=== PATIENT | female | born 1980 | race Caucasian/White ===

== ENCOUNTER 2024-04-14 12:01 | Outpatient (OUT) | payer BC, SELFPAY ==
--- NOTE | 2024-04-14 13:05 | P.CN_ITS ---
Consult Note: HPI Data of Consult Patient: new to practice Consult date: 04/14/24 Requesting Physician: Malinda Malik MD Primary Care Provider: QUENTIN ROJAS Family Provider: QUENTIN ROJAS Consult Narrative Reason for consult: right hip pain, thigh pain Narrative: 43yof who presents for evaluation. worsening right hip pain and right thigh pain for past several months. underwent l5-s1 fusion about a year ago, which helped with left leg radicular symptoms. endorses numbness in right foot. imaging shows multilevel degenerative changes above the fusion. has engaged in a series of provider directed home exericses for >6 weeks, without benefit. uses gabapentin and advil, with some benefit. denies adverse med side effects. cc:: CC: Malinda Malik MD Review of Systems ROS Status of ROS 10 or more systems reviewed and unremark able except as noted in history and below Exam Narrative Exam Narrative: Psych-alert and oriented x 3.? Attentive and appropriate, constitutionally normal, displays normal mood and affect per situation.? There are no obvious deficits in memory, reasoning, or intellect.? Skin-no obvious rashes, bruising, erythema noted to the patient's area of pain. Extremities- extremities are warm with minimal edema and palpable pulses. Hip-tenderness to palpation is noted over the right hip joint.? Pain is elicited with internal and external rotation of the hip.? Hip provocative maneuvers are positive and consistent with the patient's normal pain.? Coordination remains intact.? Gait remains antalgic. Assessment and Plan Assessment and Plan (1) Trochanteric bursitis of right hip: (2) Lumbar radiculopathy: Plan 43yof who presents for evaluation. failed conservative measures, as noted. imaging reviewed, as noted. given symptoms and imaging, prudent to attempt right troch bursa injection. she is in agreement. discussed that depending on results, may require further imaging with lumbar mri, but will discuss at next visit. meds reviewed, no changes. follow up in 4 weeks. Procedure: Right greater troch bursa injection Medications: Bupivacaine 0.25% 4cc, kenalog 40mg I explained the details of the procedure to the patient including the risks, benefits and alternatives. We had an informed discussion and the patient verbalized understanding and signed the consent form. All questions were answered appropriately.? A time out was performed.? The skin overlying the right lateral hip was prepped with alcohol x3. A sterile syringe containing the above medication was attached to a 25 gauge, 3.5 inch needle under strict aseptic technique. The greater trochanter and point of tenderness was palpated. At this point, the needle was then advanced through the subcutaneous tissue down to os. The needle was withdrawn slightly and the contents of the syringe were gently injected without any resistance. The needle was removed and pressure was applied to the injection site to decrease the incidence of ecchymosis and hematoma formation.? A sterile bandage was applied.
== END 2024-04-14 12:02 | disposition home or self-care (01) ==
PROVIDERS: PCP Family Medicine; Visit Provider Anesthesiology
DX: M70.61 Trochanteric bursitis, right hip (principal); M54.16 Radiculopathy, lumbar region
CPT/HCPCS: 20610; J0665; J3301

== ENCOUNTER 2024-05-12 13:36 | Outpatient (OUT) | payer BC, SELFPAY ==
--- NOTE | 2024-05-12 15:01 | P.CN_ITS ---
Consult Note: HPI Data of Consult Patient: known to practice within the last 3 years Consult date: 05/12/24 Requesting Physician: Malinda Malik MD Primary Care Provider: QUENTIN ROJAS Family Provider: QUENTIN ROJAS Consult Narrative Reason for consult: right thigh pain, bilateral foot pain Narrative: 43yof who presents for assessment. notes pain in her right thigh, as well as bilateral feet. her lumbar imaging was reviewed, which shows facet arthropathy at l3-4, l4-5, above her fusion at l5-s1. continues in a series of provider directed home exercises >6 weeks, without benefit. uses gabapentin. denies adverse med side effects. cc:: CC: Malinda Malik MD Review of Systems ROS Status of ROS 10 or more systems reviewed and unremark able except as noted in history and below Meds Home Medications and Allergies Home Medications ?Medication ?Instructions ?Recorded ?Confirmed ?Type etonogestrel 68 mg subdermal subdermal 04/14/24 History implant (Nexplanon) gabapentin 300 mg capsule 300 mg PO BID 04/14/24 04/14/24 History vortioxetine 5 mg tablet 5 mg PO DAILY 04/14/24 04/14/24 History (Trintellix) Allergies Allergy/AdvReac Type Severity Reaction Status Date / Time Penicillins Allergy itching Verified 04/14/24 13:59 Sulfa (Sulfonamide Allergy itching Verified 04/14/24 13:59 Antibiotics) sulfamethoxazole Allergy itch Verified 04/14/24 13:59 [From Bactrim] trimethoprim [From Bactrim] Allergy itch Verified 04/14/24 13:59 Exam Narrative Exam Narrative: Psych-alert and oriented x 3. Attentive and appropriate, constitutionally normal, displays normal mood and affect per situation. There are no obvious deficits in memory, reasoning, or intellect.? Skin-no obvious rashes, bruising, erythema noted to the patient's area of pain.? Extremities- extremities are warm with minimal edema and palpable pulses. Lumbar-tenderness to palpation noted in the lumbar spine and paraspinal musculature. Pain is not elicited with flexion, extension, and lateral rotation of the lumbar spine. Range of motion is not diminished with these motions. Facet loading maneuvers are negative.? Strength-noted to be unremarkable Sensory-no notable sensory deficits in the bilateral lower extremities to touch or pinprick in all dermatomal distributions with the exception to decreased sensation to the bilateral L4, 5 dermatomal distribution Coordination remains intact.? Gait remains non-antalgic. Assessment and Plan Assessment and Plan (1) Lumbar radiculopathy: Plan 43yof who presents for assessment. worsening right thigh, bilateral foot pain. discussed that would be prudent to obtain EMG of bilateral lower extremities. depending on results, may need lumbar mri. she expressed understanding. meds reviewed, no changes. follow up after EMG.
== END 2024-05-12 13:37 | disposition home or self-care (01) ==
LOC: PM 13:36
PROVIDERS: PCP Family Medicine; Visit Provider Anesthesiology
DX: M54.16 Radiculopathy, lumbar region (principal)
CPT/HCPCS: G0463

== ENCOUNTER 2024-06-09 13:23 | Outpatient (OUT) | payer BC, SELFPAY ==
--- OUTSIDE RECORDS SUMMARY | 2024-06-09 13:45 | XMS_ITS | CCD ---
Author Organization [facility] Care Team Providers Care Press Set Up Name Role Phone Unavailable Primary Care Provider UnavailMEG Anderson Referring Unavailable Quentin Rojas Unavailable QUENTIN ROJAS Primary Care Physician Len, DO Webb Primary Care Provider [phone] DO Quentin Rojas Attending Provider [phone] Janel Waite Unavailable DO Quentin Rojas Primary Care Provider Len, DO Webb Attending Provider [phone] XENIA Waite Attending Provider Chhaya Gautam Unavailable DO Quentin Rojas Primary Care Provider [phone] DO Quentin Rojas Attending Provider MD Chhaya Gautam Attending Provider DO Quentin Rojas Primary Care Provider [phone] XENIA Waite Attending Provider DO Quentin Rojas Primary Care Provider [phone] DO Quentin Rojas Attending Provider DO Quentin Rojas Primary Care Provider MD Chhaya Gautam Attending Provider Len, DO Webb Primary Care Provider MD Chhaya Gautam Attending Provider DO Quentin Rojas Primary Care Provider MD Chhaya Gautam Attending Provider Nely Kat J Attending Unavailable Nely, Kat J Referring Unavailable Nely, Kat J Admitting Unavailable Nely, Kat J Admitting Unavailable Nely, Kat J Attending Unavailable Kuns, DO Quentin Primary Care Provider [phone] DO Len Quentin Attending Provider [phone] MD Chhaya Gautam Attending Provider Kuns, Quentin Attending Unavailable Kuns, Quentin Admitting Unavailable Kuns, Quetnin Primary Care Unavailable Gautam, Chhaya E Admitting Unavailable Kuns, Quentin Primary Care Unavailable Gautam, Chhaya E Attending Unavailable Kuns, Quentin Attending Unavailable Kuns, Quentin Admitting Unavailable Kuns, Quentin Primary Care Unavailable Kuns, Quentin Primary Care Unavailable Gautam, Chhaya E Admitting Unavailable Gautam, Chhaya E Attending Unavailable Gautam, Chhaya E Admitting Unavailable Kuns, Quentin Primary Care Unavailable Gautam, Chhaya E Attending Unavailable Gautam, Chhaya E Admitting Unavailable Gautam, Chhaya E Attending Unavailable Kuns, Quentin Primary Care Unavailable Kuns, Quentin Attending Unavailable Kuns, Quentin Admitting Unavailable Kuns, Quentin Primary Care Unavailable Gautam, Chhaya E Admitting Unavailable Kuns, Quentin Primary Care Unavailable Gatuam, Chhaya E Attending Unavailable Gautam, Chhaya E Admitting Unavailable Gautam, Chhaya E Attending Unavailable Kuns, Quentin Primary Care Unavailable Kuns, DO Quentin Primary Care Provider DO Len Quentin Attending Provider Giedraitis , Malinda Canales Attending Unavailable Giedraitis , Malinda Canales Attending Unavailable LAMIN WARD Attending Unavailable GAUTAM, CHHAYA Referring Unavailable LAMIN WARD Attending Unavailable GAUTAM, CHHAYA Referring Unavailable JAYY RICHARDS Attending Unavailable GAUTAM, CHHAYA Referring Unavailable ROSSY AJ Attending Unavailable GIEDRAITIS, ANDRIUS Referring Unavailable Allergies Allergy Classification Reported Allergen(s) Allergy Type Date of Onset Reaction(s) Facility (20 sources) Clindamycin Drug Allergy 04-16-20 [facility] (16 sources) Sulfamethoxazole / Trimethoprim Drug Allergy rash [facility] Other (16 sources) Sulfonamides (Antibiotic) Propensity to adverse reactions Rash [employer] [facility] Other (10 sources) Penicillin Drug Allergy Unknown [employer] [facility] Other (14 sources) Penicillins; Translations: [Penicillins] Allergy to substance 04-16-20 [facility] (14 sources) Sulfamethoxazole; Translations: [sulfamethoxazole] Drug Allergy 04-16-20 [facility] (14 sources) Sulfonamides (Antibiotic); Translations: [Sulfa (Sulfonamide Antibiotics)] Allergy to substance 04-16-20 [facility] (7 sources) Trimethoprim; Translations: [trimethoprim] Drug Allergy 04-16-20 [facility] (1 source) Clindamycin Drug Allergy 03-20-20 [facility] Repository Medications Current Medications Medication Drug Class(es) Dates Sig (Normalized) Sig (Original) acetaminophen 500 mg oral capsule (9 sources) Start: 12-28-2022 take 1 capsule by mouth every six hours Acetaminophen 500 MG 1 capsule as needed Orally every 6 hrs Dec, Active buPROPion hydrochloride 100 mg oral tablet (2 sources) Aminoketone Start: 06-27-2018 take 1 tablet by mouth every twenty-four hours buPROPion HCl 100 MG 1 tablet Orally Once a day Jun, Active etonogestrel 68 mg drug implant (16 sources) Progestin Nexplanon 68 MG as directed Subcutaneous Active Etonogestrel (Nexplanon) 68 mg Implant (13 sources) Start: 04-16-2023 Etonogestrel (Nexplanon) 68 mg Implant Active 1 IMPLANT SUBDERMAL Once April 15, 2023 11:00pm as a single dose Start: 04-16-2023 Etonogestrel ( Nexplanon) 68 mg Implant Active 1 IMPLANT SUBDERMAL Once April 16, 2023 12:00am as a single dose gabapentin 300 mg oral capsule (18 sources) Anti-epileptic Agent Start: 11-27-2023 End: 01-10-2024 take 300 mg by mouth twice daily Gabapentin Active 300 MG PO Twice daily 180 January 10, 2024 1:15pm Start: 05-15-2023 take 1 capsule by mo uth every twelve hours Gabapentin 300 MG 1 capsules Orally BID for 30 days May, Active Start: 05-15-2023 take 2 capsules by m outh every twelve hours Gabapentin 300 MG 2 capsules Orally BID for 30 days May, Active Start: 05-15-2023 take 1-2 capsules by mouth once daily at bedtime Gabapentin 300 MG 1-2 capsule Orally qhs for 30 days May, Active ibuprofen 200 mg oral tablet (16 sources) Nonsteroidal Anti-inflammatory Drug Start: 04-16-2023 take 200 mg by mouth every six hours Ibuprofen Active 200 MG PO Q6H April 16, 2023 12:00am take 1 tablet by mouth every fou r hours Ibuprofen 200 MG 1 tablet as needed Orally every 4 hrs Active Multivitamin preparation (13 sources) Start: 04-16-2023 take 1 tablet by mouth once daily in the morning Multivitamin Active 1 TAB PO Every morning April 15, 2023 11:00pm Start: 04-16-2023 take 1 tablet by syed th once daily in the morning Multivitamin Active 1 TAB PO Every morning April 16, 2023 12:00am Multivitamins (16 sources) Multivitamins as directed Orally Active naproxen sodium 220 mg oral tablet (9 sources) Nonsteroidal Anti-inflammatory Drug Start: 12-28-2022 take 2 tablets by mouth every twelve hours Aleve 220 MG 2 tablets Orally every 12 hrs Dec, Active semaglutide (1 source) Start: 04-28-2024 inject 0.3 mg by subcutaneous injection every week semaglutide Active 0.3 MG SUBCUT every week April 28, 2024 12:00am [facility] vortioxetine 5 mg oral tablet (12 sources) Start: 12-06-2023 End: 01-10-2024 take 1 tablet by mouth once daily Vortioxetine (Trintellix) 5 mg tablet Active 5 MG PO Daily 90 January 10, 2024 1:16pm Completed/Discontinued Medications Medication Drug Class(es) Dates Sig (Normalized) Sig (Original) ciprofloxacin 500 mg oral tablet (12 sources) Quinolone Antimicrobial Start: 3 End: take 1 tablet by mouth every two hours Ciprofloxacin Hcl (Cipro) 500 mg tablet Discontinued 500 MG PO Q12H May 02, 2023 12:00am November 27, 2023 11:46am administer dose at least 2 hrs before/6 hrs after dairy products, calcium, zinc, and/or iron-containing products citalopram 10 mg oral tablet (20 sources) Serotonin Reuptake Inhibitor Start: 7 End: 4 take 1 tablet by mouth once daily in the morning Citalopram (Celexa) 10 mg tablet Discontinued 10 MG PO Every morning April 16, 2023 12:00am November 27, 2023 11:45am cyclobenzaprine hydrochloride 10 mg oral tablet (12 sources) Muscle Relaxant Start: 3 End: 4 take 10 mg by mouth three times daily Cyclobenzaprine Discontinued 10 MG PO Three times daily May 02, 2023 12:00am March 20, 2024 3:04pm methylPREDNISolone 4 mg oral tablet (14 sources) Corticosteroid Start: 4 End: 4 take 1 tablet by mouth once Methylprednisolone (Medrol (Bryson)) 4 mg tablets,dose pack Discontinued 0 PO per package directions December 06, 2023 1:00am January 10, 2024 12:47pm PO PER PKG DIR Start: 12-07-2022 Medrol 4 MG as directed Orally Nov, Active oxyCODONE hydrochloride 5 mg oral tablet (12 sources) Opioid Agonist Start: 05-02-2023 End: 11-27-2023 take 5-10 mg by mouth every six hours Oxycodone Discontinued 5 - 10 MG PO Q6H 40 8 May 02, 2023 November 27, 2023 11:46am Prednisone (12 sources) Start: 05-02-2023 End: 11-27-2023 Prednisone Discontinued 1 dose pk PO per package directions May 02, 2023 12:00am November 27, 2023 11:46am take 4 tabs for 3 days then take 3 tabs for 3 days then take 2 tabs for 3 days then take 1 tab for 3 days Start: 05-02-2023 End: 11-27-2023 Prednisone Discontinued 1 do se pk PO per package directions May 01, 2023 11:00pm November 27, 2023 10:46am take 4 tabs for 3 days then take 3 tabs for 3 days then take 2 tabs for 3 days then take 1 tab for 3 days Start: 05-02-2023 Prednisone Act sherri 1 dose pk PO per package directions May 01, 2023 11:00pm take 4 tabs for 3 days then take 3 tabs for 3 days then take 2 tabs for 3 days then take 1 tab for 3 days Start: 05-02-2023 Prednisone Act sherri 1 dose pk PO per package directions May 02, 2023 12:00am take 4 tabs for 3 days then take 3 tabs for 3 days then take 2 tabs for 3 days then take 1 tab for 3 days TB Test (15 sources) Start: 04-29-2013 TB Test Apr 0.1 mL Problems Active Problems Problem Classification Problem Date Documented Date Episodic/Chronic Acquired foot deformities (1 source) Foot drop, right foot Episodic Anxiety disorders (10 sources) Anxiety; Translations: [Anxiety disorder, unspecified] 11-27-2023 Chronic Diabetes mellitus without complication (20 sources) Hyperglycemia; Translations: [Hyperglycemia, unspecified] 11-27-2023 Episodic Disorders of lipid metabolism (20 sources) Hyperlipidemia; Translations: [Hyperlipidemia, unspecified] Chronic Menstrual disorders (20 sources) Disorder of menstruation; Translations: [Irregular menstruation, unspecified] 11-27-2023 Chronic Mood disorders (19 sources) Mood swings; Translations: [Unspecified mood [affective] disorder] Onset: 10-04-2021 Resolved: 04-11-2022 Chronic Mood disorders (7 sources) Mood swings; Translations: [Emotional lability] 11-27-2023 Episodic Other acquired deformities (20 sources) Spondylolisthesis L5/S1 level; Translations: [Spondylolisthesis, lumbosacral region] 11-27-2023 Episodic Other acquired deformities (14 sources) Spondylolisthesis, lumbosacral region; Translations: [Spondylolisthesis] Onset: 06-12-2023 Episodic Other acquired deformities (16 sources) Lumbar spondylolisthesis; Translations: [Spondylolisthesis, lumbar region] 05-01-2023 Episodic Other connective tissue disease (1 source) Trochanteric bursitis; Translations: [Trochanteric bursitis, right hip] 03-20-2024 Episodic Other connective tissue disease (1 source) History of lumbar fusion; Translations: [Arthrodesis status] 04-28-2024 Episodic Other connective tissue disease (1 source) Trochanteric bursitis, right hip; Translations: [Enthesopathy of hip region] 03-20-2024 Episodic Other nervous system disorders (20 sources) Carpal tunnel syndrome; Translations: [Carpal tunnel syndrome, unspecified upper limb] 11-27-2023 Chronic Other nervous system disorders (1 source) Fasciculation; Translations: [Fasciculation] Onset: 03-17-2024 Episodic Other non-traumatic joint disorders (1 source) Hip pain; Translations: [Pain in right hip] 04-28-2024 Episodic Other non-traumatic joint disorders (1 source) Pain in right hip; Translations: [Pain in joint, pelvic region and thigh] 04-28-2024 Episodic Other nutritional; endocrine; and metabolic disorders (19 sources) Body mass index 30+ - obesity; Translations: [Body mass index (BMI) 30.0-30.9, adult] 04-28-2024 Chronic Other nutritional; endocrine; and metabolic disorders (1 source) Body mass index (BMI) 30.0-30.9, adult Chronic Other nutritional; endocrine; and metabolic disorders (1 source) Obesity; Translations: [Obesity, unspecified] 04-28-2024 Chronic Other nutritional; endocrine; and metabolic disorders (1 source) Body mass index (BMI) 32.0-32.9, adult; Translations: [Body Mass Index 32.0-32.9, adult] 04-28-2024 Chronic Other nutritional; endocrine; and metabolic disorders (1 source) Obesity, unspecified; Translations: [Obesity, unspecified] 04-28-2024 Chronic Other screening for suspected conditions (not mental disorders or infectious disease) (5 sources) Encounter for screening for malignant neoplasm of colon; Translations: [Special screening for malignant neoplasms of colon] 01-10-2024 Episodic Other skin disorders (1 source) Localized swelling, mass and lump, unspecified upper limb Episodic Screening and history of mental health and substance abuse codes (7 sources) Patient encounter status; Translations: [Encounter for screening for depression] Episodic Spondylosis; intervertebral disc disorders; other back problems (20 sources) Low back pain; Translations: [Low back pain] Onset: 06-03-2024 Episodic Substance-related disorders (20 sources) Nicotine dependence; Translations: [Nicotine dependence, unspecified, uncomplicated] 11-27-2023 Chronic Unclassified (1 source) Encounter for general adult medical examination without abnormal findings; Translations: [Encounter for general adult medical examination without abnormal findings] Onset: 07-02-2023 Unclassified (1 source) Encounter for preprocedural laboratory examination; Translations: [Encounter for preprocedural laboratory examination] Onset: 04-16-2023 Viral infection (16 sources) Condyloma acuminatum of the anogenital region; Translations: [Anogenital (venereal) warts] Episodic Past or Other Problems Problem Classification Problem Date Documented Da te Episodic/Chronic Other acquired deformities (6 sources) Spondylolisthesis, lumbar region; Translations: [Acquired spondylolisthesis] Onset: 04-30-2023 Episodic Other nervous system disorders (1 source) Anesthesia of skin Onset: 04-11-2022 Resolved: 04-11-2022 Episodic Results Test Name Value Interpretation Reference Range Facility Alanine aminotransferase [En zymatic activity/volume] in Serum or PlasmaOrdered By: Quentin Rojas on 03-17-2024 ALT [Catalytic activity/Vol] 16 U/L 7-52 [facility] Comment on above: Performed By: #### C MP, MG, LIPID, TSH3, CBC #### [facility] [address] [place] [address] Albumin [Mass/volume] in Ser um or Plasma by Bromocresol green (BCG) dye binding methoOrdered By: Quentin Rojas on 03-17-2024 Albumin BCG dye [Mass/Vol] 4.0 g/dL 3.5-5.7 [facility] Alkaline phosphatase [Enzyma tic activity/volume] in Serum or PlasmaOrdered By: Quentin Rojas on 03-17-2024 ALP [Catalytic activity/Vol] 62 U/L 34-104 [facility] Comment on above: Performed By: #### C MP, MG, LIPID, TSH3, CBC #### [facility] [address] [place] [address] Aspartate aminotransferase [ Enzymatic activity/volume] in Serum or PlasmaOrdered By: Quentin Rojas on 03-17-2024 AST [Catalytic activity/Vol] 18 U/L 13-39 [facility] Comment on above: Performed By: #### C MP, MG, LIPID, TSH3, CBC #### [address] Automated basophil %Ordered By: Quentin Rojas on 03-17-2024 Basophils/100 WBC (Bld) 0.5 % . [facility] Comment on above: Performed By: #### C MP, MG, LIPID, TSH3, CBC #### [address] Automated basophil countOrde red By: Quentin Rojas on 03-17-2024 Basophils (Bld) [#/Vol] 0.0 10*3/uL 0.0-0.2 [facility] Comment on above: Result Comment: PERF ORMED BY: [place] [address] PATHOLOGIST [employer] DESI FIELDS M.D. Performed By: #### C MP, MG, LIPID, TSH3, CBC #### [address] Automated blood monocyte cou ntOrdered By: Quentin Rojas on 03-17-2024 Monocytes (Bld) [#/Vol] 0.4 10*3/uL 0.0-0.8 [facility] Comment on above: Performed By: #### C MP, MG, LIPID, TSH3, CBC #### [address] Automated eosinophil %Ordere d By: Quentin Rojas on 03-17-2024 Eosinophils/100 WBC (Bld) 1.9 % . [facility] Comment on above: Performed By: #### C MP, MG, LIPID, TSH3, CBC #### [address] Automated eosinophil countOr dered By: Quentin Rojas on 03-17-2024 Eosinophils (Bld) [#/Vol] 0.2 10*3/uL 0.0-0.45 [facility] Comment on above: Performed By: #### C MP, MG, LIPID, TSH3, CBC #### [facility] [address] Automated monocyte %Ordered By: Quentin Rojas on 03-17-2024 Monocytes/100 WBC (Bld) 4.7 % . [facility] Comment on above: Performed By: #### C MP, MG, LIPID, TSH3, CBC #### [facility] [address] Automated neutrophil %Ordere d By: Quentin Rojas on 03-17-2024 Neutrophils/100 WBC (Bld) 56.6 % . [facility] Comment on above: Performed By: #### C MP, MG, LIPID, TSH3, CBC #### [address] Bilirubin.total [Mass/volume ] in Serum or PlasmaOrdered By: Quentin Rojas on 03-17-2024 Bilirubin [Mass/Vol] 0.4 mg/dL 0.3-1.0 [facility] Comment on above: Performed By: #### C MP, MG, LIPID, TSH3, CBC #### [address] Calcium [Mass/volume] in Ser um or PlasmaOrdered By: Quentin Rojas on 03-17-2024 Calcium [Mass/Vol] 9.0 mg/dL 8.6-10.3 [facility] Comment on above: Performed By: #### C MP, MG, LIPID, TSH3, CBC #### [facility] [address] [place] [address] [place] Carbon dioxide, total [Moles /volume] in Serum or PlasmaOrdered By: Quentin Rojas on 03-17-2024 CO2 [Moles/Vol] 21.9 mmol/L 21.0-31.0 [facility] Comment on above: Performed By: #### C MP, MG, LIPID, TSH3, CBC #### [facility] [address] [place] [address] [place] Chloride [Moles/volume] in S sonny or PlasmaOrdered By: Quentin Rojas on 03-17-2024 Chloride [Moles/Vol] 109 mmol/L High 98-107 [facility] Comment on above: Performed By: #### C MP, MG, LIPID, TSH3, CBC #### [address] Cholesterol [Mass/volume] in Serum or PlasmaOrdered By: Quentin Rojas on 03-17-2024 Cholesterol [Mass/Vol] 186 mg/dL 140-200 [facility] Comment on above: Chol less than 200 m g/dl low riskChol 201-239 mg/dl borderline riskChol 240 mg/dl and greater high risk Result Comment: Chol less than 200 mg/dl low risk Chol 201-239 mg/dl borderline risk Chol 240 mg/dl and greater high risk Performed By: #### C BC, BMP #### [address] Cholesterol in LDL Calc [Mas s/Vol]Ordered By: Quentin Rojas on 03-17-2024 Cholesterol in LDL [Mass/Vol] 109 mg/dL High 0-100 [facility] Comment on above: LDL ATP III CLASSIFI CATIONLDL less than 100 mg/dL OptimalLDL 100-129 mg/dL Near or above optimalLDL 130-159 mg/dL Borderline highLDL 160-189 mg/dL HighLDL greater than 189 mg/dL Very high Cholesterol in VLDL Calc [Ma ss/Vol]Ordered By: Quentin Rojas on 03-17-2024 Cholesterol in VLDL [Mass/Vol] 33 mg/dL [facility] Complete Blood Count Auto Di ffon 03-17-2024 Mean Corpuscular HGB Conc 33.9 g/dL Normal 32.0-35.0 [facility] Comment on above: Performed By: #### C MP, MG, LIPID, TSH3, CBC #### [facility] [address] NRBC% 0.1 /100{WBC} Normal 0-0.5 [facility] Comment on above: Performed By: #### C MP, MG, LIPID, TSH3, CBC #### [facility] [address] Comprehensive Metabolic Pane marcello 03-17-2024 Albumin [Mass/Vol] 4.0 g/dL Normal 3.5-5.7 [facility] Comment on above: Performed By: #### C MP, MG, LIPID, TSH3, CBC #### [facility] [address] GFR/1.73 sq M.predicted MDRD (S/P/Bld) [Vol rate/Area] mL/min/{1.73_m2} Normal [facility] Comment on above: Performed By: #### C MP, MG, LIPID, TSH3, CBC #### [address] Creatinine [Mass/volume] in Serum or PlasmaOrdered By: Quentin Rojas on 03-17-2024 Creatinine [Mass/Vol] 0.81 mg/dL 0.60-1.20 [facility] Comment on above: Performed By: #### C MP, MG, LIPID, TSH3, CBC #### [address] Erythrocyte distribution wid th [Ratio] by Automated countOrdered By: Quentin Rojas on 03-17-2024 Erythrocyte distribution width (RBC) [Ratio] 13.5 % 11.9-15.3 [facility] Comment on above: Performed By: #### C MP, MG, LIPID, TSH3, CBC #### [facility] [address] [place] [address] Erythrocytes [#/volume] in B lood by Automated countOrdered By: Quentin Rojas on 03-17-2024 RBC (Bld) [#/Vol] 4.44 10*6/uL 3.60-5.00 [facility] Comment on above: Performed By: #### C MP, MG, LIPID, TSH3, CBC #### [facility] [address] Glucose [Mass/volume] in Ser um or PlasmaOrdered By: Quentin Rojas on 03-17-2024 Glucose [Mass/Vol] 105 mg/dL High 70-100 [facility] Comment on above: ADA recommended refe rence rangeRandom Glucose Reference Range is dependent on time and content of last meal. Glucose of more than 200 mg/dL in a nonstressed, ambulatory subject supports the diagnosis of Diabetes Mellitus. Result Comment: Grass Range om Glucose Reference Range is dependent on time and content of last meal. Glucose of more than 200 mg/dL in a nonstressed, ambulatory subject supports the diagnosis of Diabetes Mellitus. ADA recommended reference range Performed By: #### C MP, MG, LIPID, TSH3, CBC #### [address] Hematocrit [Volume Fraction] of Blood by Automated countOrdered By: Quentin Rojas on 03-17-2024 Hematocrit (Bld) [Volume fraction] 41.9 % 34.0-46.4 [facility] Comment on above: Performed By: #### C MP, MG, LIPID, TSH3, CBC #### [address] Hemoglobin [Mass/volume] in BloodOrdered By: Quentin Rojas on 03-17-2024 Hemoglobin (Bld) [Mass/Vol] 14.2 g/dL 11.8-15.4 [facility] Comment on above: Performed By: #### C MP, MG, LIPID, TSH3, CBC #### [address] Leukocytes [#/volume] correc jeevan for nucleated erythrocytes in Blood by Automated counOrdered By: Quentin Rojas on 03-17-2024 WBC corrected for nucl RBC Auto (Bld) [#/Vol] 8.1 10*3/uL 3.8-11.6 [facility] Leukocytes [#/volume] in Blo od by Automated countOrdered By: Quentin Rojas on 03-17-2024 WBC (Bld) [#/Vol] 8.1 10*3/uL 3.8-11.6 [facility] Comment on above: Performed By: #### C MP, MG, LIPID, TSH3, CBC #### [address] Lipid Panelon 03-17-2024 LDL Cholesterol,Calculated 109 mg/dL High 0-100 [facility] Comment on above: Result Comment: LDL ATP III CLASSIFICATION LDL less than 100 mg/dL Optimal LDL 100-129 mg/dL Near or above optimal LDL 130-159 mg/dL Borderline high LDL 160-189 mg/dL High LDL greater than 189 mg/dL Very high Performed By: #### C BC, BMP #### [address] Triglyceride w/Reflex 166 mg/dL High 0-149 [facility] Comment on above: Result Comment: TRIG ATP III CLASSIFICATION TRIG less than 150 mg/dL Normal TRIG 150-199 mg/dL Borderline high TRIG 200-500 mg/dL High TRIG greater than 500 mg/dL Very high Standard traceable to the Center for Disease Conrtrol and Prevention (CDC) test method. Performed By: #### C BC, BMP #### [address] VLDL CHOLESTEROL 33 mg/dL Normal [facility] Comment on above: Performed By: #### C BC, BMP #### [address] Lymphocytes [#/volume] in Bl ood by Automated countOrdered By: Quentin Rojas on 03-17-2024 Lymphocytes (Bld) [#/Vol] 3.0 10*3/uL 1.00-4.8 [facility] Comment on above: Performed By: #### C MP, MG, LIPID, TSH3, CBC #### [place] [address] [place] Lymphocytes/100 leukocytes i n Blood by Automated countOrdered By: Quentin Rojas on 03-17-2024 Lymphocytes/100 WBC (Bld) 36.3 % . [facility] Comment on above: Performed By: #### C MP, MG, LIPID, TSH3, CBC #### [place] [address] [place] MCH [Entitic mass] by Automa jeevan countOrdered By: Quentin Rojas on 03-17-2024 MCH (RBC) [Entitic mass] 32.0 pg 24.7-34.3 [facility] Comment on above: Performed By: #### C MP, MG, LIPID, TSH3, CBC #### [facility] [address] [place] [address] MCHC Auto (RBC) [Mass/Vol]Or dered By: Quentin Rojas on 03-17-2024 MCHC (RBC) [Mass/Vol] 33.9 g/dL 32.0-35.0 [facility] MCV [Entitic volume] by Auto mated countOrdered By: Quentin Rojas on 03-17-2024 MCV (RBC) [Entitic vol] 94.4 fL 80-100 F [facility] Comment on above: Performed By: #### C MP, MG, LIPID, TSH3, CBC #### [facility] [address] [place] [address] Magnesium [Mass/volume] in S sonny or PlasmaOrdered By: Quentni Rojas on 03-17-2024 Magnesium [Mass/Vol] 1.9 mg/dL 1.9-2.7 [facility] Comment on above: Performed By: #### C MP, MG, LIPID, TSH3, CBC #### [facility] [address] [place] [address] Neutrophils [#/volume] in Bl ood by Automated countOrdered By: Quentin Rojas on 03-17-2024 Neutrophils (Bld) [#/Vol] 4.6 10*3/uL 1.8-7.7 [facility] Comment on above: Performed By: #### C MP, MG, LIPID, TSH3, CBC #### [facility] [address] [place] [address] No Panel InformationOrdered By: Quentin Rojas on 03-17-2024 Estimated GFR (CKD-EPI) > 60.0 mL/Min [facility] Creatinine Clearance (Chem N/A [facility] Nucleated erythrocytes [Pres ence] in Blood by Automated countOrdered By: Quentin Rojas on 03-17-2024 Nucleated RBC Auto Ql (Bld) 0.1 /100{WBC} 0-0.5 [facility] Platelet mean volume [Entiti c volume] in Blood by Automated countOrdered By: Quentin Rojas on 03-17-2024 Platelet mean volume (Bld) [Entitic vol] 7.7 fL 6.3-10.7 [facility] Comment on above: Performed By: #### C MP, MG, LIPID, TSH3, CBC #### [facility] [address] Platelets [#/volume] in Bloo d by Automated countOrdered By: Quentin Rojas on 03-17-2024 Platelets (Bld) [#/Vol] 349 10*3/uL 150-450 [facility] Comment on above: Performed By: #### C MP, MG, LIPID, TSH3, CBC #### [address] Potassium [Moles/volume] in Serum or PlasmaOrdered By: Quentin Rojas on 03-17-2024 Potassium [Moles/Vol] 4.1 mmol/L 3.5-5.1 [facility] Comment on above: Performed By: #### C MP, MG, LIPID, TSH3, CBC #### [address] Protein [Mass/volume] in Ser um or PlasmaOrdered By: Quentin Rojas on 03-17-2024 Protein [Mass/Vol] 6.4 g/dL 6.4-8.9 [facility] Comment on above: Performed By: #### C MP, MG, LIPID, TSH3, CBC #### [address] Serum globulin measurement b y calculation (mass/volume)Ordered By: Quentin Rojas on 03-17-2024 Globulin (S) [Mass/Vol] 2.4 g/dL [facility] Comment on above: Performed By: #### C MP, MG, LIPID, TSH3, CBC #### [address] Serum or plasma albumin/glob ulin mass ratioOrdered By: Quentin Rojas on 03-17-2024 Albumin/Globulin [Mass ratio] 1.7 {ratio} [facility] Comment on above: Performed By: #### C MP, MG, LIPID, TSH3, CBC #### [facility] [address] [place] [address] Serum or plasma anion gap de terminationOrdered By: Quentin Rojas on 03-17-2024 Anion gap [Moles/Vol] 12.2 mmol/L 6.0-15.0 [facility] Comment on above: Performed By: #### C MP, MG, LIPID, TSH3, CBC #### [address] Serum or plasma high density lipoprotein (HDL) cholesterol measurementOrdered By: Quentin Rojas on 03-17-2024 Cholesterol in HDL [Mass/Vol] 44 mg/dL 23-92 [facility] Comment on above: HDL CHOL ATP-III CLA SSIFICATION Cardiovascular RiskHDL > or equal to 60 mg/dL LOWHDL < 40 mg/dL HIGH Result Comment: HDL CHOL ATP-III CLASSIFICATION Cardiovascular Risk HDL > or equal to 60 mg/dL LOW HDL < 40 mg/dL HIGH Performed By: #### C BC, BMP #### [address] Serum or plasma total choles terol/high density lipoprotein (HDL) cholesterol mass ratOrdered By: Quentin Rojas on 03-17-2024 Cholesterol.total/Jeana sterol in HDL [Mass ratio] 4.2 {ratio} <5.0 [facility] Comment on above: Performed By: #### C BC, BMP #### [address] Sodium [Moles/volume] in Ser um or PlasmaOrdered By: Quentin Rojas on 03-17-2024 Sodium [Moles/Vol] 139 mmol/L 136-145 [facility] Comment on above: Performed By: #### C MP, MG, LIPID, TSH3, CBC #### [address] Thyrotropin [Units/volume] i n Serum or PlasmaOrdered By: Quentin Rojas on 03-17-2024 TSH Qn 1.18 m[IU]/L 0.45-5.33 [facility] Comment on above: Result Comment: PERF ORMED BY: [place] [address] PATHOLOGIST SUPERVISOR [employer] DESI FIELDS M.D. Performed By: #### C BC, BMP #### [facility] [address] [place] [address] Triglyceride [Mass/volume] i n Serum or PlasmaOrdered By: Quentin Rojas on 03-17-2024 Triglyceride [Mass/Vol] 166 mg/dL High 0-149 F [facility] Comment on above: TRIG ATP III CLASSIF ICATIONTRIG less than 150 mg/dL NormalTRIG 150-199 mg/dL Borderline highTRIG 200-500 mg/dL High TRIG greater than 500 mg/dL Very highStandard traceable to the Center for Disease Conrtrol and Prevention (CDC) test method. Urea nitrogen [Mass/volume] in Serum or PlasmaOrdered By: Quentin Rojas on 03-17-2024 Urea nitrogen [Mass/Vol] 14 mg/dL 05-08 [facility] Comment on above: Performed By: #### C MP, MG, LIPID, TSH3, CBC #### [address] XR lumbar spine 6V w bending on 03-17-2024 XR lumbar spine 6V w bending [facility] [place] [address] [place] [address] XRay Report Signed Patient: Vanessa Schroeder MR#: [id number] 28 : 1980 Acct:[id number] Age/Sex: 43 / F ADM Date: 03/17/24 [facility] Attending Dr: Chhaya Gautam MD Copies to: Chhaya Gautam MD Ordering Provider: Chhaya Gautam MD Date of Service: 03/17/24 XR/XR lumbar spine 6V w bending: M54.16 - Radiculopathy, lumbar region XR lumbar spine 6V w bending 03/17/2024 8:28 AM SIGNS AND SYMPTOMS: Follow-up lumbar fusion, right hip pain PROTOCOLS: Frontal, lateral, and flexion-extension views of the lumbar spine COMPARISON: 10/10/2023 FINDINGS: The alignment, development and bony structures are normal. There is no fracture or destructive lesion. Posterior and intervertebral fusion is noted at L5-S1 with similar alignment. No hardware complication. There is mild disc height loss at L3-L4 and L4-5 with accompanying anterior osteophyte formation. Facet hypertrophy is present at L3-L4 and L4-5. Flexion and extension views show no pathologic movement. Degenerative changes are noted in the sacroiliac joints. XR/XR lumbar spine 6V w bending IMPRESSION: No fracture. No pathologic movement. Unchanged posterior fusion at L5-S1 without change in alignment. Impression dictated by: Chaz Bruner M.D.03/17/2024 12:08 PM Dictation Location: [place] [address] Transcribed By: [facility] 03/17/24 1208 Dictated By: Chaz Bruner II, MD 03/17/24 1207 Signed By: 03/17/24 1208 Normal [facility] ECG 12 lead ECGon 01-10-2024 ECG 12 lead ECG [facility] [place] [address] [place] [address] Electrocardiograph Report Signed Patient: Vanessa Schroeder MR#: [id number] 28 : 1980 Acct:[id number] Age/Sex: 43 / F ADM Date: 01/10/24 Loc: [facility] Room: Type: [facility] Attending Dr: Quentin Rojas DO Ordering Provider: Quentin Rojas DO Date of Service: 01/10/24 ECG/ECG 12 lead ECG: Z00.00 - Encounter for general adult medical examination ... Copies to: Test Reason : Blood Pressure : / mmHG Vent. Rate : 085 BPM Atrial Rate : 085 BPM P-R Int : 118 ms QRS Dur : 086 ms QT Int : 368 ms P-R-T Axes : 042 050 049 degrees QTc Int : 437 ms Normal sinus rhythm Normal ECG When compared with ECG of 16-APR-2023 11:40, No significant change was found Confirmed by Quentin Rojas ([id number]) on 01/10/2024 1:46:58 PM Referred By: Electronically Signed By:Quentin Rojas Transcribed By: MUS Signed By Quentin Rojas DO 01/10/24 1347 Normal [facility] Laboratory - Chemistry and C hemistry - challengeon 01-10-2024 Bilirubin Ql (U) Negative [facility] Glucose (U) [Mass/Vol] Negative [facility] Ketones Ql ([facility]) Trace [facility] pH (U) 6.0 [pH] [facility] Specific gravity (U) [Rel density] 1.030 [facility] Urobilinogen (U) [Mass/Vol] 0.2 mg/dL [facility] Laboratory - Specimen inform ationon 01-10-2024 Appearance (U) dark [facility] Color (U) yellow [facility] Laboratory - Urinalysison Leukocyte esterase Test strip Ql (U) Negative [facility] Nitrite Ql (U) Negative [facility] Protein Ql (U) Trace [facility] No Panel Informationon 01-09 Urine Occult Blood Negative [facility] MA Mamm Screen w/CAD if perf and 3D Bilon 12-03-2023 MA Mamm Screen w/CAD if perf and 3D Andrea Exam Date/Time: 12/03/2023 11:49 EST Reason for Exam: Z12.31 Report IMPRESSION: BIRADS 1 NEGATIVE, NORMAL INTERVAL FOLLOW-UP.12 MONTH RECALL. CLINICAL HISTORY: Z12.31. COMPARISON: 12/01/2022. COMMENT: Routine views and tomosynthesis views of both breasts were obtained. There are scattered areas of fibroglandular density. No dominant breast mass nor neoplastic calcifications are identified in either breast. There has been no significant change from the previous exam. The examination was reviewed with Computer Aided Detection. Breast Density: No Mammography is very important to your health. The current [employer] and National Comprehensive Cancer Network guidelines recommends annual mammography beginning at age 40. This facility utilizes a reminder system to ensure all patients receive reminder notifications at the appropriate time based on the recommendations of this exam. Board Certified Radiologists. Accredited by the ACR and FDA. Ordering Provider: Kat Mckay FINAL REPORT Dictated: 12/03/2023 11:58 am Amando Flores M.D. Signed (Electronic Signature): 12/03/2023 11:58 am Signed by: Amando Flores M.D. Transcribed by: MARIE Technologist: EVON Assessment: BI-RADS Category 1-Negative Recommendation: Normal interval follow-up Normal [facility] PAP [id number] 11-21-2023 Cytology report Cyto stain Doc (Cvx/Vag) Note Invalid Interpretation Code [facility] Comment on above: Result Comment: TEST S RESULT FLAG UNITS REF RANGE LAB Clinician Provided Cytology Information Source.............Endocervix Other..............Other No. of containers..01 ThinPrep Vial DIAGNOSIS: 01 NEGATIVE FOR INTRAEPITHELIAL LESION OR MALIGNANCY. Specimen adequacy: 01 Satisfactory for evaluation. No endocervical component is identified. Performed by: Danilo Wyatt Lan Engineer (ASCP) . 01 Note: Note 01 The Pap smear is a screening test designed to aid in the detection of premalignant and malignant conditions of the uterine cervix. It is not a diagnostic procedure and should not be used as the sole means of detecting cervical cancer. Both false-positive and false-negative reports do occur. Test Methodology: Note 01 This liquid based ThinPrep(R) pap test was screened with the use of an image guided system. FLAG LEGEND: L-Low Normal,H-High Normal,LL-Alert Low,HH-Alert High <-Panic Low,>-Panic High,A-Abnormal,AA-Critical Abnormal Performed at: [address] [id number] Linh Arnold MD, Performed By: #### 3 [id number] #### [facility] [address] [place] [address] HPV 16+18+31+33+35+39+45+51 +52+56+58+59+66+68 DNA Probe+sig amp Ql (Cvx) Negative Invalid Interpretation Code Negative [facility] Comment on above: Result Comment: This nucleic acid amplification test detects fourteen high-risk HPV types (16,18,31,33,35,39,45,51,52,56,58,59,66,68) without differentiation. Performed at: [facility] [id number] MD Catalina Melton Performed at: =G [facility] [id number] MD Catalina Melton Performed By: #### 3 [id number] #### [facility] [address] [place], [place] [id number] PAP [id number] 11-15-2023 Collection Technique BRUSH-SPATULA Normal [facility] Comment on above: Performed By: #### 3 [id number] #### [facility] [address] [place] [id number] Gynecological Body Site ENDOCERVIX Normal F [facility] Comment on above: Performed By: #### 3 [id number] #### [facility] [address] [place] [id number] Other Patient Information [id number] Normal [facility] Comment on above: Performed By: #### 3 [id number] #### [facility] [address] [place] [address] Previous Cytology Negative Normal [facility] Comment on above: Performed By: #### 3 [id number] #### [facility] [address] [place] [address] Previous Treatment NONE Normal [facility] Comment on above: Performed By: #### 3 [id number] #### [facility] [address] [place] [address] Physician Orderon 11-15-2023 Physician Order [id number] .00TIFF Normal [facility] Physician Order [id number]#1 .00TIFF Normal [facility] XR lumbar spine AP/LAT/FLX/E XTon 10-10-2023 XR lumbar spine AP/LAT/FLX/EXT [facility] [place] [address] XRay Report Signed Patient: Vanessa Schroeder MR#: [id number] 28 : 1980 Acct:[id number] Age/Sex: 43 / F ADM Date: 10/10/23 [facility]: Type: [facility] Attending Dr: Chhaya Gautam MD Copies to: Chhaya Gautam MD Ordering Provider: Chhaya Gautam MD Date of Service: 10/10/23 XR/XR lumbar spine AP/LAT/FLX/EXT: FOLLOW UP LUMBAR SPINE WITH FLEXION AND EXTENSION VIEWS - 4 views COMPARISON: 07/16/2023 CLINICAL DATA: Follow-up after lumbar fusion. Right leg numbness. Standing AP as well as lateral views in neutral, flexion and extension were obtained. There is prior laminectomy and fusion at the lumbosacral junction. Posterior rods, pedicle screws and interbody fusion device are again noted. The hardware is stable. There is still slight anterolisthesis of L5 on S1. There is no other malalignments or instability with flexion or extension. No acute fractures are seen. There is mild disc space narrowing at L3-4 and L4-5. There are tiny endplate spurs. There is mild lower lumbar facet disease. The SI joints show mild sclerosis. No paraspinal soft tissue abnormalities are present. XR/XR lumbar spine AP/LAT/FLX/EXT IMPRESSION: STABLE POSTOPERATIVE CHANGES AT THE LUMBOSACRAL JUNCTION. Impression dictated by: Kathy Alcantara M.D.10/10/2023 3:44 PM Dictation Location: [facility] Transcribed By: BERNADETTE 10/10/23 1544 Dictated By: Kathy Alcantara MD 10/10/23 1540 Signed By: 10/10/23 1544 Normal [facility] XR lumbar spine AP/LAT/FLX/E XTon 07-16-2023 XR lumbar spine AP/LAT/FLX/EXT [facility] [place] [address] [place] [address] XRay Report Signed Patient: Vanessa Schroeder MR#: [id number] 28 : 1980 Acct:[id number] Age/Sex: 43 / F ADM Date: 07/16/23 Loc: [facility] Room: Type: [facility] Attending Dr: Chhaya Gautam MD Copies to: Chhaya Gautam MD Ordering Provider: Chhaya Gautam MD Date of Service: 07/16/23 XR/XR lumbar spine AP/LAT/FLX/EXT: M43.17, LUMBAR SPINE WITH FLEXION AND EXTENSION VIEWS - 4 views COMPARISON: 06/12/2023 CLINICAL DATA: Follow-up lumbar fusion. Standing AP as well as lateral views in neutral, flexion and extension were obtained. There is osteopenia. There is prior laminectomy and fusion with posterior rods and pedicle screws at the lumbosacral junction. The hardware appears intact and similar in position to the prior. There are no developing fractures. There is no change in alignment or evidence of instability. There is slight disc space narrowing L3-4 and L4-5. There are tiny endplate spurs. There is some facet disease. The SI joints are intact. XR/XR lumbar spine AP/LAT/FLX/EXT IMPRESSION: STABLE POSTOPERATIVE AND MINOR DEGENERATIVE CHANGES. Impression dictated by: Kathy Alcantara M.D.07/16/2023 3:01 PM Dictation Location: [place] [address] Transcribed By: BERNADETTE 07/16/23 1501 Dictated By: Kathy Alcantara MD 07/16/23 1456 Signed By: 07/16/23 1501 Normal [facility] Alanine aminotransferase [En zymatic activity/volume] in Serum or PlasmaOrdered By: Quentin Rojas on 07-02-2023 ALT [Catalytic activity/Vol] 18 U/L Normal 7-52 [facility] Comment on above: Order Comment: Reaso n for Exam Wellness examination Performed By: #### C MP, TSH3, CBC, LIPID #### [facility] [address] [place] [address] [place] Albumin [Mass/volume] in Ser um or Plasma by Bromocresol green (BCG) dye binding methoOrdered By: Quentin Rojas on 07-02-2023 Albumin BCG dye [Mass/Vol] 4.2 g/dL 3.5-5.7 [facility] Alkaline phosphatase [Enzyma tic activity/volume] in Serum or PlasmaOrdered By: Quentin Rojas on 07-02-2023 ALP [Catalytic activity/Vol] 73 U/L Normal 34-104 [facility] Comment on above: Order Comment: Reaso n for Exam Wellness examination Performed By: #### C MP, TSH3, CBC, LIPID #### [place] [address] [place] Aspartate aminotransferase [ Enzymatic activity/volume] in Serum or PlasmaOrdered By: Quentin Rojas on 07-02-2023 AST [Catalytic activity/Vol] 20 U/L Normal 13-39 [facility] Comment on above: Order Comment: Reaso n for Exam Wellness examination Performed By: #### C MP, TSH3, CBC, LIPID #### [place] [address] [place] Automated basophil %Ordered By: Quentin Rojas on 07-02-2023 Basophils/100 WBC (Bld) 0.3 % Normal . [facility] Comment on above: Order Comment: Reaso n for Exam Wellness examination Performed By: #### C MP, TSH3, CBC, LIPID #### [place] [address] [place] Automated basophil countOrde red By: Quentin Rojas on 07-02-2023 Basophils (Bld) [#/Vol] 0.0 10*3/uL Normal 0.0-0.2 [facility] Comment on above: Order Comment: Reaso n for Exam Wellness examination Result Comment: PERF ORMED BY: [place] [address] PATHOLOGIST SUPERVISOR [employer] DESI FIELDS M.D. Performed By: #### C MP, TSH3, CBC, LIPID #### [facility] [address] [place] [address] Automated blood monocyte cou ntOrdered By: Quentin Rojas on 07-02-2023 Monocytes (Bld) [#/Vol] 0.4 10*3/uL Normal 0.0-0.8 [facility] Comment on above: Order Comment: Reaso n for Exam Wellness examination Performed By: #### C MP, TSH3, CBC, LIPID #### [address] Automated eosinophil %Ordere d By: Quentin Rojas on 07-02-2023 Eosinophils/100 WBC (Bld) 2.5 % Normal . [facility] Comment on above: Order Comment: Reaso n for Exam Wellness examination Performed By: #### C MP, TSH3, CBC, LIPID #### [facility] [address] [place] [address] Automated eosinophil countOr dered By: Quentin Rojas on 07-02-2023 Eosinophils (Bld) [#/Vol] 0.2 10*3/uL Normal 0.0-0.45 [facility] Comment on above: Order Comment: Reaso n for Exam Wellness examination Performed By: #### C MP, TSH3, CBC, LIPID #### [facility] [address] [place] [address] Automated monocyte %Ordered By: Quentin Rojas on 07-02-2023 Monocytes/100 WBC (Bld) 5.3 % Normal . [facility] Comment on above: Order Comment: Reaso n for Exam Wellness examination Performed By: #### C MP, TSH3, CBC, LIPID #### [facility] [address] [place] [address] [place] Automated neutrophil %Ordere d By: Quentin Rojas on 07-02-2023 Neutrophils/100 WBC (Bld) 60.4 % Normal . [facility] Comment on above: Order Comment: Reaso n for Exam Wellness examination Performed By: #### C MP, TSH3, CBC, LIPID #### [facility] [address] [place] [address] [place] Bilirubin.total [Mass/volume ] in Serum or PlasmaOrdered By: Quentin Rojas on 07-02-2023 Bilirubin [Mass/Vol] 0.3 mg/dL Normal 0.3-1.0 [facility] Comment on above: Order Comment: Reaso n for Exam Wellness examination Performed By: #### C MP, TSH3, CBC, LIPID #### [facility] [address] [place] [address] [place] Calcium [Mass/volume] in Ser um or PlasmaOrdered By: Quentin Rojas on 07-02-2023 Calcium [Mass/Vol] 9.3 mg/dL Normal 8.6-10.3 [facility] Comment on above: Order Comment: Reaso n for Exam Wellness examination Performed By: #### C MP, TSH3, CBC, LIPID #### [facility] [address] [place] [address] [place] Carbon dioxide, total [Moles /volume] in Serum or PlasmaOrdered By: Quentin Rojas on 07-02-2023 CO2 [Moles/Vol] 25.5 mmol/L Normal 21.0-31.0 [facility] Comment on above: Order Comment: Reaso n for Exam Wellness examination Performed By: #### C MP, TSH3, CBC, LIPID #### [facility] [address] [place] [id number] [place] Chloride [Moles/volume] in S sonny or PlasmaOrdered By: Quentin Rojas on 07-02-2023 Chloride [Moles/Vol] 111 mmol/L High 98-107 [facility] Comment on above: Order Comment: Reaso n for Exam Wellness examination Performed By: #### C MP, TSH3, CBC, LIPID #### [facility] [address] [place] [id number] [place] Cholesterol [Mass/volume] in Serum or PlasmaOrdered By: Quentin Rojas on 07-02-2023 Cholesterol [Mass/Vol] 203 mg/dL High 140-200 [facility] Comment on above: Chol less than 200 m g/dl low riskChol 201-239 mg/dl borderline riskChol 240 mg/dl and greater high risk Order Comment: Reaso n for Exam Wellness examination Result Comment: Chol less than 200 mg/dl low risk Chol 201-239 mg/dl borderline risk Chol 240 mg/dl and greater high risk Performed By: #### C MP, TSH3, CBC, LIPID #### [facility] [address] [place] [address] [place] Cholesterol in LDL Calc [Mas s/Vol]Ordered By: Quentin Rojas on 07-02-2023 Cholesterol in LDL [Mass/Vol] 120 mg/dL 0-100 [facility] Comment on above: LDL ATP III CLASSIFI CATIONLDL less than 100 mg/dL OptimalLDL 100-129 mg/dL Near or above optimalLDL 130-159 mg/dL Borderline highLDL 160-189 mg/dL HighLDL greater than 189 mg/dL Very high Cholesterol in VLDL Calc [Ma ss/Vol]Ordered By: Quentin Rojas on 07-02-2023 Cholesterol in VLDL [Mass/Vol] 35 mg/dL [facility] Complete Blood Count Auto Di ffon 07-02-2023 Mean Corpuscular HGB Conc 33.7 g/dL Normal 32.0-35.0 [facility] Comment on above: Order Comment: Reaso n for Exam Wellness examination Performed By: #### C MP, TSH3, CBC, LIPID #### [facility] [address] [place] [address] [facility] NRBC% 0.0 /100{WBC} Normal 0-0.5 [facility] Comment on above: Order Comment: Reaso n for Exam Wellness examination Performed By: #### C MP, TSH3, CBC, LIPID #### [facility] [address] [place] [address] [place] Comprehensive Metabolic Pane marcello 07-02-2023 Albumin [Mass/Vol] 4.2 g/dL Normal 3.5-5.7 [facility] Comment on above: Order Comment: Reaso n for Exam Wellness examination Performed By: #### C MP, TSH3, CBC, LIPID #### [place] [address] [place] GFR/1.73 sq M.predicted MDRD (S/P/Bld) [Vol rate/Area] mL/min/{1.73_m2} Normal [facility] Comment on above: Order Comment: Reaso n for Exam Wellness examination Performed By: #### C MP, TSH3, CBC, LIPID #### [address] Creatinine [Mass/volume] in Serum or PlasmaOrdered By: Quentin Rojas on 07-02-2023 Creatinine [Mass/Vol] 0.92 mg/dL Normal 0.60-1.20 [facility] Comment on above: Order Comment: Reaso n for Exam Wellness examination Performed By: #### C MP, TSH3, CBC, LIPID #### [address] Erythrocyte distribution wid th [Ratio] by Automated countOrdered By: Quentin Rojas on 07-02-2023 Erythrocyte distribution width (RBC) [Ratio] 13.6 % Normal 11.9-15.3 [facility] Comment on above: Order Comment: Reaso n for Exam Wellness examination Performed By: #### C MP, TSH3, CBC, LIPID #### [place] [address] [place] Erythrocytes [#/volume] in B lood by Automated countOrdered By: Quentin Rojas on 07-02-2023 RBC (Bld) [#/Vol] 4.40 10*6/uL Normal 3.60-5.00 [facility] [facility] Comment on above: Order Comment: Reaso n for Exam Wellness examination Performed By: #### C MP, TSH3, CBC, LIPID #### [place] [address] [place] Glucose [Mass/volume] in Ser um or PlasmaOrdered By: Quentin Rojas on 07-02-2023 Glucose [Mass/Vol] 93 mg/dL Normal 70-100 [facility] Comment on above: ADA recommended refe rence rangeRandom Glucose Reference Range is dependent on time and content of last meal. Glucose of more than 200 mg/dL in a nonstressed, ambulatory subject supports the diagnosis of Diabetes Mellitus. Order Comment: Reaso n for Exam Wellness examination Result Comment: Grass Range om Glucose Reference Range is dependent on time and content of last meal. Glucose of more than 200 mg/dL in a nonstressed, ambulatory subject supports the diagnosis of Diabetes Mellitus. ADA recommended reference range Performed By: #### C MP, TSH3, CBC, LIPID #### [facility] [address] [place] [address] Hematocrit [Volume Fraction] of Blood by Automated countOrdered By: Quentin Rojas on 07-02-2023 Hematocrit (Bld) [Volume fraction] 42.6 % Normal 34.0-46.4 [facility] Comment on above: Order Comment: Reaso n for Exam Wellness examination Performed By: #### C MP, TSH3, CBC, LIPID #### [facility] [address] [place] [address] Hemoglobin [Mass/volume] in BloodOrdered By: Quentin Rojas on 07-02-2023 Hemoglobin (Bld) [Mass/Vol] 14.4 g/dL Normal 11.8-15.4 [facility] Comment on above: Order Comment: Reaso n for Exam Wellness examination Performed By: #### C MP, TSH3, CBC, LIPID #### [facility] [address] [place] [address] Leukocytes [#/volume] correc jeevan for nucleated erythrocytes in Blood by Automated counOrdered By: Quentin Rojas on 07-02-2023 WBC corrected for nucl RBC Auto (Bld) [#/Vol] 8.1 10*3/uL 3.8-11.6 [facility] Leukocytes [#/volume] in Blo od by Automated countOrdered By: Quentin Rojas on 07-02-2023 WBC (Bld) [#/Vol] 8.1 10*3/uL Normal 3.8-11.6 [facility] Comment on above: Order Comment: Reaso n for Exam Wellness examination Performed By: #### C MP, TSH3, CBC, LIPID #### [facility] [address] Lipid Panelon 07-02-2023 LDL Cholesterol,Calculated 120 mg/dL High 0-100 [facility] Comment on above: Order Comment: Reaso n for Exam Wellness examination Result Comment: LDL ATP III CLASSIFICATION LDL less than 100 mg/dL Optimal LDL 100-129 mg/dL Near or above optimal LDL 130-159 mg/dL Borderline high LDL 160-189 mg/dL High LDL greater than 189 mg/dL Very high Performed By: #### C MP, TSH3, CBC, LIPID #### [facility] [address] Triglyceride w/Reflex 175 mg/dL High 0-149 [facility] Comment on above: Order Comment: Reaso n for Exam Wellness examination Result Comment: TRIG ATP III CLASSIFICATION TRIG less than 150 mg/dL Normal TRIG 150-199 mg/dL Borderline high TRIG 200-500 mg/dL High TRIG greater than 500 mg/dL Very high Standard traceable to the Center for Disease Conrtrol and Prevention (CDC) test method. Performed By: #### C MP, TSH3, CBC, LIPID #### [address] VLDL CHOLESTEROL 35 mg/dL Normal [facility] Comment on above: Order Comment: Reaso n for Exam Wellness examination Performed By: #### C MP, TSH3, CBC, LIPID #### [place] [address] [place] Lymphocytes [#/volume] in Bl ood by Automated countOrdered By: Quentin Rojas on 07-02-2023 Lymphocytes (Bld) [#/Vol] 2.5 10*3/uL Normal 1.00-4.8 [facility] Comment on above: Order Comment: Reaso n for Exam Wellness examination Performed By: #### C MP, TSH3, CBC, LIPID #### [facility] [address] [place] [address] [place] Lymphocytes/100 leukocytes i n Blood by Automated countOrdered By: Quentin Rojas on 07-02-2023 Lymphocytes/100 WBC (Bld) 31.5 % Normal . [facility] Comment on above: Order Comment: Reaso n for Exam Wellness examination Performed By: #### C MP, TSH3, CBC, LIPID #### [facility] [address] [place] [address] MCH [Entitic mass] by Automa jeevan countOrdered By: Qunetin Rojas on 07-02-2023 MCH (RBC) [Entitic mass] 32.7 pg Normal 24.7-34.3 [facility] Comment on above: Order Comment: Reaso n for Exam Wellness examination Performed By: #### C MP, TSH3, CBC, LIPID #### [facility] [address] [place] [address] MCHC Auto (RBC) [Mass/Vol]Or dered By: Quentin Rojas on 07-02-2023 MCHC (RBC) [Mass/Vol] 33.7 g/dL 32.0-35.0 [facility] MCV [Entitic volume] by Auto mated countOrdered By: Quentin Rojas on 07-02-2023 MCV (RBC) [Entitic vol] 96.9 fL Normal 80-100 [facility] Comment on above: Order Comment: Reaso n for Exam Wellness examination Performed By: #### C MP, TSH3, CBC, LIPID #### [facility] [address] [place] [address] Neutrophils [#/volume] in Bl ood by Automated countOrdered By: Quentin Rojas on 07-02-2023 Neutrophils (Bld) [#/Vol] 4.9 10*3/uL Normal 1.8-7.7 [facility] Comment on above: Order Comment: Reaso n for Exam Wellness examination Performed By: #### C MP, TSH3, CBC, LIPID #### [facility] [address] [place] [address] No Panel InformationOrdered By: Quentin Rojas on 07-02-2023 Estimated GFR (CKD-EPI) > 60.0 mL/Min [facility] Creatinine Clearance (Chem N/A [facility] Nucleated erythrocytes [Pres ence] in Blood by Automated countOrdered By: Quentin Rojas on 07-02-2023 Nucleated RBC Auto Ql (Bld) 0.0 /100{WBC} 0-0.5 [facility] Platelet mean volume [Entiti c volume] in Blood by Automated countOrdered By: Quentin Rojas on 07-02-2023 Platelet mean volume (Bld) [Entitic vol] 7.1 fL Normal 6.3-10.7 [facility] Comment on above: Order Comment: Reaso n for Exam Wellness examination Performed By: #### C MP, TSH3, CBC, LIPID #### [facility] [address] [place] [address] Platelets [#/volume] in Bloo d by Automated countOrdered By: Quentin Rojas on 07-02-2023 Platelets (Bld) [#/Vol] 380 10*3/uL Normal 150-450 [facility] Comment on above: Order Comment: Reaso n for Exam Wellness examination Performed By: #### C MP, TSH3, CBC, LIPID #### [facility] [address] [place] [address] Potassium [Moles/volume] in Serum or PlasmaOrdered By: Quentin Rojas on 07-02-2023 Potassium [Moles/Vol] 4.6 mmol/L Normal 3.5-5.1 [facility] Comment on above: Order Comment: Reaso n for Exam Wellness examination Performed By: #### C MP, TSH3, CBC, LIPID #### [facility] [address] [place] [address] Protein [Mass/volume] in Ser um or PlasmaOrdered By: Quentin Rojas on 07-02-2023 Protein [Mass/Vol] 6.7 g/dL Normal 6.4-8.9 [facility] Comment on above: Order Comment: Reaso n for Exam Wellness examination Performed By: #### C MP, TSH3, CBC, LIPID #### [facility] [address] [place] [address] Serum globulin measurement b y calculation (mass/volume)Ordered By: Quentin Rojas on 07-02-2023 Globulin (S) [Mass/Vol] 2.5 g/dL Normal [facility] Comment on above: Order Comment: Reaso n for Exam Wellness examination Performed By: #### C MP, TSH3, CBC, LIPID #### [facility] [address] Serum or plasma albumin/glob ulin mass ratioOrdered By: Quentin Rojas on 07-02-2023 Albumin/Globulin [Mass ratio] 1.7 {ratio} Normal [facility] Comment on above: Order Comment: Reaso n for Exam Wellness examination Performed By: #### C MP, TSH3, CBC, LIPID #### [address] Serum or plasma anion gap de terminationOrdered By: Quentin Rojas on 07-02-2023 Anion gap [Moles/Vol] 9.1 mmol/L Normal 6.0-15.0 [facility] Comment on above: Order Comment: Reaso n for Exam Wellness examination Performed By: #### C MP, TSH3, CBC, LIPID #### [facility] [address] [place] [address] Serum or plasma high density lipoprotein (HDL) cholesterol measurementOrdered By: Quentin Rojas on 07-02-2023 Cholesterol in HDL [Mass/Vol] 48 mg/dL Normal 23-92 [facility] Comment on above: HDL CHOL ATP-III CLA SSIFICATION Cardiovascular RiskHDL > or equal to 60 mg/dL LOWHDL < 40 mg/dL HIGH Order Comment: Reaso n for Exam Wellness examination Result Comment: HDL CHOL ATP-III CLASSIFICATION Cardiovascular Risk HDL > or equal to 60 mg/dL LOW HDL < 40 mg/dL HIGH Performed By: #### C MP, TSH3, CBC, LIPID #### [facility] [address] [place] [address] Serum or plasma total choles terol/high density lipoprotein (HDL) cholesterol mass ratOrdered By: Quentin Rojas on 07-02-2023 Cholesterol.total/Jeana sterol in HDL [Mass ratio] 4.2 {ratio} Normal <5.0 [facility] Comment on above: Order Comment: Reaso n for Exam Wellness examination Performed By: #### C MP, TSH3, CBC, LIPID #### [facility] [address] Sodium [Moles/volume] in Ser um or PlasmaOrdered By: Quentin Rojas on 07-02-2023 Sodium [Moles/Vol] 141 mmol/L Normal 136-145 [facility] Comment on above: Order Comment: Reaso n for Exam Wellness examination Performed By: #### C MP, TSH3, CBC, LIPID #### [facility] [address] Thyrotropin [Units/volume] i n Serum or PlasmaOrdered By: Quentin Rojas on 07-02-2023 TSH Qn 1.70 m[IU]/L Normal 0.45-5.33 [facility] Comment on above: Order Comment: Reaso n for Exam Wellness examination Result Comment: PERF ORMED BY: [place] [address] PATHOLOGIST [employer] FIELDS M.D. Performed By: #### C MP, TSH3, CBC, LIPID #### [address] Triglyceride [Mass/volume] i n Serum or PlasmaOrdered By: Quentin Rojas on 07-02-2023 Triglyceride [Mass/Vol] 175 mg/dL 0-149 [facility] Comment on above: TRIG ATP III CLASSIF ICATIONTRIG less than 150 mg/dL NormalTRIG 150-199 mg/dL Borderline highTRIG 200-500 mg/dL High TRIG greater than 500 mg/dL Very highStandard traceable to the Center for Disease Conrtrol and Prevention (CDC) test method. Urea nitrogen [Mass/volume] in Serum or PlasmaOrdered By: Quentni Rojas on 07-02-2023 Urea nitrogen [Mass/Vol] 13 mg/dL Normal 7-25 [facility] Comment on above: Order Comment: Reaso n for Exam Wellness examination Performed By: #### C MP, TSH3, CBC, LIPID #### [address] XR lumbar spine AP/LAT/FLX/E XTon 06-12-2023 XR lumbar spine AP/LAT/FLX/EXT [facility] [place] [address] [place] [address] XRay Report Signed Patient: Vanessa Schroeder MR#: [id number] 26 : 1980 Acct:[id number] Age/Sex: 42 / F ADM Date: [facility]/12/23 [facility] Attending Dr: Chhaya Gautam MD Copies to: Chhaya Gautam MD Ordering Provider: Chhaya Gautam MD Date of Service: 06/12/23 XR/XR lumbar spine AP/LAT/FLX/EXT: M43.17 LUMBAR SPINE - 4 views CLINICAL HISTORY: 6 week postsurgery check. COMPARISON: OR imaging 04/30/2023 FINDINGS: Posterior hardware fixation L5-S1 without evidence of hardware complication. No pathological motion on flexion or extension views. XR/XR lumbar spine AP/LAT/FLX/EXT IMPRESSION: NO EVIDENCE OF HARDWARE COMPLICATION. Impression dictated by: Vladislav Blackburn Jr., D.OIsreal06/12/2023 2:34 PM Dictation Location: [place] [address] Transcribed By: [facility] 06/12/23 1434 Dictated By: Vladislav Blackburn Jr, DO 06/12/23 1431 Signed By: 06/12/23 1434 Normal [facility] Automated basophil %Ordered By: Chhaya Gautam on 05-02-2023 Basophils/100 WBC (Bld) 0.0 % Normal . [facility] Comment on above: Performed By: #### C BC, BMP #### [facility] [address] [place] [address] Automated basophil countOrde red By: Chhaya Gautam on 05-02-2023 Basophils (Bld) [#/Vol] 0.0 10*3/uL Normal 0.0-0.2 [facility] Comment on above: Result Comment: PERF ORMED BY: [place] [address] PATHOLOGIST [employer] M.D. Performed By: #### C BC, BMP #### [address] Automated blood monocyte cou ntOrdered By: Chhaya Gautam on 05-02-2023 Monocytes (Bld) [#/Vol] 0.9 10*3/uL High 0.0-0.8 [facility] Comment on above: Performed By: #### C BC, BMP #### [address] Automated eosinophil %Ordere d By: Chhaya Gautam on 05-02-2023 Eosinophils/100 WBC (Bld) 0.0 % Normal . [facility] Comment on above: Performed By: #### C BC, BMP #### [address] Automated eosinophil countOr dered By: Chhaya Gautam on 05-02-2023 Eosinophils (Bld) [#/Vol] 0.0 10*3/uL Normal 0.0-0.45 [facility] Comment on above: Performed By: #### C BC, BMP #### [address] Automated monocyte %Ordered By: Chhaya Gautam on 05-02-2023 Monocytes/100 WBC (Bld) 5.1 % Normal . [facility] Comment on above: Performed By: #### C BC, BMP #### [address] Automated neutrophil %Ordere d By: Chhaya Gautam on 05-02-2023 Neutrophils/100 WBC (Bld) 88.8 % Normal . [facility] Comment on above: Performed By: #### C BC, BMP #### [address] Basic Metabolic Panelon 04-14 Creatinine Clr Calc Pharmacy 98.21 Normal [facility] Comment on above: Result Comment: PERF ORMED BY: [place] [address] PATHOLOGIST [employer] M.D. Performed By: #### C BC, BMP #### [address] GFR/1.73 sq M.predicted MDRD (S/P/Bld) [Vol rate/Area] mL/min/{1.73_m2} Normal [facility] Comment on above: Performed By: #### C BC, BMP #### [address] Calcium [Mass/volume] in Ser um or PlasmaOrdered By: Chhaya Gautam on 05-02-2023 Calcium [Mass/Vol] 8.9 mg/dL Normal 8.6-10.3 [facility] Comment on above: Performed By: #### C BC, BMP #### [address] Carbon dioxide, total [Moles /volume] in Serum or PlasmaOrdered By: Chhaya Gautam on 05-02-2023 CO2 [Moles/Vol] 26.4 mmol/L Normal 21.0-31.0 [facility] Comment on above: Performed By: #### C BC, BMP #### [place] [address] [place] Chloride [Moles/volume] in S sonny or PlasmaOrdered By: Chhaya Gautam on 05-02-2023 Chloride [Moles/Vol] 106 mmol/L Normal 98-107 [facility] Comment on above: Performed By: #### C BC, BMP #### [address] Complete Blood Count Auto Di ffon 05-02-2023 Mean Corpuscular HGB Conc 34.5 g/dL Normal 32.0-35.0 [facility] Comment on above: Performed By: #### C BC, BMP #### [address] NRBC% 0.0 /100{WBC} Normal 0-0.5 [facility] Comment on above: Performed By: #### C BC, BMP #### [place] [address] [place] Creatinine [Mass/volume] in Serum or PlasmaOrdered By: Chhaya Gautam on 05-02-2023 Creatinine [Mass/Vol] 0.73 mg/dL Normal 0.60-1.20 [facility] Comment on above: Performed By: #### C BC, BMP #### [facility] [address] Erythrocyte distribution wid th [Ratio] by Automated countOrdered By: Chhaya Gautam on 05-02-2023 Erythrocyte distribution width (RBC) [Ratio] 13.4 % Normal 11.9-15.3 [facility] Comment on above: Performed By: #### C BC, BMP #### [facility] [address] Erythrocytes [#/volume] in B lood by Automated countOrdered By: Chhaya Gautam on 05-02-2023 RBC (Bld) [#/Vol] 3.72 10*6/uL Normal 3.60-5.00 [facility] Comment on above: Performed By: #### C BC, BMP #### [facility] [address] [place] [address] [place] Glucose [Mass/volume] in Ser um or PlasmaOrdered By: Chhaya Gautam on 05-02-2023 Glucose [Mass/Vol] 129 mg/dL High 70-100 [facility] Comment on above: ADA recommended refe rence rangeRandom Glucose Reference Range is dependent on time and content of last meal. Glucose of more than 200 mg/dL in a nonstressed, ambulatory subject supports the diagnosis of Diabetes Mellitus. Result Comment: Grass Range om Glucose Reference Range is dependent on time and content of last meal. Glucose of more than 200 mg/dL in a nonstressed, ambulatory subject supports the diagnosis of Diabetes Mellitus. ADA recommended reference range Performed By: #### C BC, BMP #### [facility] [address] Hematocrit [Volume Fraction] of Blood by Automated countOrdered By: Chhaya Gautam on 05-02-2023 Hematocrit (Bld) [Volume fraction] 35.0 % Normal 34.0-46.4 [facility] Comment on above: Performed By: #### C BC, BMP #### [facility] [address] [place] [address] [place] Hemoglobin [Mass/volume] in BloodOrdered By: Chhaya Gautam on 05-02-2023 Hemoglobin (Bld) [Mass/Vol] 12.1 g/dL Normal 11.8-15.4 [facility] Comment on above: Performed By: #### C ANGEL, BMP #### [address] Leukocytes [#/volume] correc jeevan for nucleated erythrocytes in Blood by Automated counOrdered By: Chhaya Gautam on 05-02-2023 WBC corrected for nucl RBC Auto (Bld) [#/Vol] 16.9 10*3/uL 3.8-11.6 [facility] Leukocytes [#/volume] in Blo od by Automated countOrdered By: Chhaya Gautam on 05-02-2023 WBC (Bld) [#/Vol] 16.9 10*3/uL High 3.8-11.6 [facility] Comment on above: Performed By: #### C ANGEL, BMP #### [place] [address] [place] Lymphocytes [#/volume] in Bl ood by Automated countOrdered By: Chhaya Gautam on 05-02-2023 Lymphocytes (Bld) [#/Vol] 1.0 10*3/uL Normal 1.00-4.8 [facility] Comment on above: Performed By: #### C ANGEL, BMP #### [address] Lymphocytes/100 leukocytes i n Blood by Automated countOrdered By: Chhaya Gautam on 05-02-2023 Lymphocytes/100 WBC (Bld) 6.1 % Normal . [facility] Comment on above: Performed By: #### C BC, BMP #### [place] [address] [place] MCH [Entitic mass] by Automa jeevan countOrdered By: Chhaya Gautam on 05-02-2023 MCH (RBC) [Entitic mass] 32.5 pg Normal 24.7-34.3 [facility] Comment on above: Performed By: #### C BC, BMP #### [address] MCHC Auto (RBC) [Mass/Vol]Or dered By: Chhaya Gautam on 05-02-2023 MCHC (RBC) [Mass/Vol] 34.5 g/dL 32.0-35.0 [facility] MCV [Entitic volume] by Auto mated countOrdered By: Chhaya Gautam on 05-02-2023 MCV (RBC) [Entitic vol] 94.1 fL Normal 80-100 [facility] Comment on above: Performed By: #### C BC, BMP #### [facility] [address] Neutrophils [#/volume] in Bl ood by Automated countOrdered By: Chhaya Gautam on 05-02-2023 Neutrophils (Bld) [#/Vol] 15.0 10*3/uL High 1.8-7.7 [facility] Comment on above: Performed By: #### C BC, BMP #### [facility] [address] [place] [address] No Panel InformationOrdered By: Chhaya Gautam on 05-02-2023 Estimated GFR (CKD-EPI) > 60.0 mL/Min [facility] Creatinine Clearance (Chem 98.21 [facility] Nucleated erythrocytes [Pres ence] in Blood by Automated countOrdered By: Chhaya Gautam on 05-02-2023 Nucleated RBC Auto Ql (Bld) 0.0 /100{WBC} 0-0.5 [facility] Platelet mean volume [Entiti c volume] in Blood by Automated countOrdered By: Chhaya Gautam on 05-02-2023 Platelet mean volume (Bld) [Entitic vol] 7.1 fL Normal 6.3-10.7 [facility] Comment on above: Performed By: #### C BC, BMP #### [facility] [address] Platelets [#/volume] in Bloo d by Automated countOrdered By: Chhaya Gautam on 05-02-2023 Platelets (Bld) [#/Vol] 264 10*3/uL Normal 150-450 [facility] Comment on above: Performed By: #### C BC, BMP #### [facility] [address] [place] [address] [place] Potassium [Moles/volume] in Serum or PlasmaOrdered By: Chhaya Gautam on 05-02-2023 Potassium [Moles/Vol] 4.3 mmol/L Normal 3.5-5.1 [facility] Comment on above: Performed By: #### C BC, BMP #### [facility] [address] [place] [address] Serum or plasma anion gap de terminationOrdered By: Chhaya Gautam on 05-02-2023 Anion gap [Moles/Vol] 9.9 mmol/L Normal 6.0-15.0 [facility] Comment on above: Performed By: #### C BC, BMP #### [address] Sodium [Moles/volume] in Ser um or PlasmaOrdered By: Chhaya Gautam on 05-02-2023 Sodium [Moles/Vol] 138 mmol/L Normal 136-145 [facility] Comment on above: Performed By: #### C BC, BMP #### [address] Urea nitrogen [Mass/volume] in Serum or PlasmaOrdered By: Chhaya Gautam on 05-02-2023 Urea nitrogen [Mass/Vol] 11 mg/dL Normal 7-25 [facility] Comment on above: Performed By: #### C BC, BMP #### [address] ABO/Rh Retypeon 04-30-2023 ABO/RH Recheck Result Positive Normal [facility] Comment on above: Result Comment: PERF ORMED BY: [place] [address] PATHOLOGIST [employer] M.D. HCG ( test) IAdontae d Ql (U)Ordered By: WALT CUTLER on 04-30-2023 HCG ( test) Ql (U) Negative [facility] HCG,Urineon 04-30-2023 Beta HCG ( test) Ql (U) Negative Normal [facility] Comment on above: Result Comment: PERF ORMED BY: [facility] [facility] [place] [id number] PATHOLOGIST [employer]EL[employer] M.D. Performed By: #### C DELMI ORTIZ #### [place] [id number] [facility] Marcello 04-30-2023 L - -------- Specimen: [id number] Received: 04/30/23 Status: GUERO Valenzuelanissa Num: [id number] Spec Type: Surgical Subm Dr: Chhaya Gautam MD Tissues: A Disc - Intervertebral/Lumbar /Cervical (LUMBAR DISC) Procedures: Camille COLLINS/Jennifer L3 -------- Age/ Patient Sex Location Account Attending Physician -------- Vanessa Schroeder 42/F 4N [id number] Chhaya Gautam MD -------- SPEC NUM: [id number] RECD: 04/30/23 STATUS: GUERO NORWOOD NUM: [id number] ULISES: 04/30/23- [facility] DR: Chhaya Gautam MD ENTERED: 04/30/23 [facility] DR: SPEC TYPE: Surgical DEPT: S ORDERED: HE, Gross/Micro L3 ORDERED: HE, Gross/Micro L3 Pathological Diagnosis Disc, L5-S1, discectomy: - Bone and cartilage with mild degenerative changes - Negative for tumor Clinical Information Spondylolithiasis Gross Description Received in formalin labeled with the patient's name, date of and disc is a 2.5 x 2.2 x 0.7 cm aggregate of waller-pink fibrocartilaginous tissue. Entirely submitted in one cassette labeled A1. Microscopic Description One H E slide reviewed. The microscopic examination confirms the diagnosis. -------- Specimen: [id number] Received: 04/30/23 Status: GUERO Cuco Num: [id number] Spec Type: Surgical Subm Dr: Chhaya Gautam MD Tissues: A Disc - Intervertebral/Lumbar /Cervical (LUMBAR DISC) Procedures: DENNIS, Gross/Micro L3 -------- Patient: Deidra Schroederly [id number] (Continued) -------- Specimen: [id number] Received: 04/30/23 (Continued) Signed (signature on file) Solomon Ervin MD 05/02/23 1015 -------- Specimen: [id number] Received: 04/30/23 Status: GUERO Cuco Num: [id number] Spec Type: Surgical Subm Dr: Chhaya Gautam MD Tissues: A Disc - Intervertebral/Lumbar /Cervical (LUMBAR DISC) Procedures: Camille COLLINS/Jennifer L3 -------- Patient: Vanessa Schroeder [id number] (Continued) -------- Specimen: [id number] Received: 04/30/23 (Continued) CPT Codes 73715 -------- -------- Specimen: [id number] Received: 04/30/23 Status: GUERO [place]wood Num: [id number] Spec Type: Surgical Subm Dr: Chhaya Gautam MD Tissues: A Disc - Intervertebral/Lumbar /Cervical (LUMBAR DISC) Procedures: Camille COLLINS/Jennifer L3 -------- Patient: Vanessa Schroeder [id number] (Continued) -------- Signed (signature on file) Solomon Ervin MD 05/02/23 1015 Normal [facility] XR lumbar spine 2-3V*on 04-14 XR lumbar spine 2-3V* [facility] [place] [address] [place] [address] XRay Report Signed Patient: Vanessa Schroeder MR#: [id number] 28 : 1980 Acct:[id number] Age/Sex: 42 / F ADM Date: 04/30/23 Loc: Room: 4T2011-6 Type: [facility] Attending Dr: Chhaya Gautam MD Copies to: Chhaya Gautam MD Ordering Provider: Chhaya Gautam MD Date of Service: 04/30/23 XR/XR lumbar spine 2-3V*: . XR lumbar spine 2-3V* 04/30/2023 10:02 AM SIGNS AND SYMPTOMS: L5-S1 fusion PROTOCOLS: Intraoperative fluoroscopic and tomographic images of the lumbar spine were obtained. COMPARISON: None FINDINGS: Intraoperative views demonstrate hardware localization at the level of the L5 spinous process. Cumulative Air Kerma in mGy: 1310 mGy XR/XR lumbar spine 2-3V* IMPRESSION: Intraoperative views demonstrate hardware localization at the level of the L5 spinous process. Impression dictated by: Chaz Bruner M.D.04/30/2023 12:36 PM Dictation Location: [place] [address] Transcribed By: [facility] 04/30/23 1236 Dictated By: Chaz Bruner II, MD 04/30/23 1234 Signed By: 04/30/23 1236 Normal [facility] Automated basophil %Ordered By: Chhaya Gautam on 04-16-2023 Basophils/100 WBC (Bld) 0.7 % Normal . [facility] Comment on above: Performed By: #### C BC, BMP #### [place] [id number] [facility] Automated basophil countOrde red By: Chhaya Gautam on 04-16-2023 Basophils (Bld) [#/Vol] 0.0 10*3/uL Normal 0.0-0.2 [facility] Comment on above: Result Comment: PERF ORMED BY: [place] [address] PATHOLOGIST [employer] DESI FIELDS M.D. Performed By: #### C BC, BMP #### [address] Automated blood monocyte cou ntOrdered By: Chhaya Gautam on 04-16-2023 Monocytes (Bld) [#/Vol] 0.5 10*3/uL Normal 0.0-0.8 [facility] Comment on above: Performed By: #### C BC, BMP #### [address] Automated eosinophil %Ordere d By: Chhaya Gauatm on 04-16-2023 Eosinophils/100 WBC (Bld) 4.3 % Normal . [facility] Comment on above: Performed By: #### C BC, BMP #### [address] Automated eosinophil countOr dered By: Chhaya Gautam on 04-16-2023 Eosinophils (Bld) [#/Vol] 0.3 10*3/uL Normal 0.0-0.45 [facility] Comment on above: Performed By: #### C BC, BMP #### [address] Automated monocyte %Ordered By: Chhaya Gautam on 04-16-2023 Monocytes/100 WBC (Bld) 7.0 % Normal . F [facility] Comment on above: Performed By: #### C BC, BMP #### [address] Automated neutrophil %Ordere d By: Chhaya Gautam on 04-16-2023 Neutrophils/100 WBC (Bld) 47.7 % Normal . [facility] Comment on above: Performed By: #### C BC, BMP #### [address] Basic Metabolic Panelon 07-0 GFR/1.73 sq M.predicted MDRD (S/P/Bld) [Vol rate/Area] mL/min/{1.73_m2} Normal [facility] Comment on above: Performed By: #### C BC, BMP #### [address] Calcium [Mass/volume] in Ser um or PlasmaOrdered By: Chhaya Gautam on 04-16-2023 Calcium [Mass/Vol] 9.0 mg/dL Normal 8.6-10.3 [facility] Comment on above: Result Comment: PERF ORMED BY: [place] [address] PATHOLOGIST [employer] FIELDS M.D. Performed By: #### C BC, BMP #### [address] Carbon dioxide, total [Moles /volume] in Serum or PlasmaOrdered By: Chhaya Gautam on 04-16-2023 CO2 [Moles/Vol] 22.9 mmol/L Normal 21.0-31.0 [facility] Comment on above: Performed By: #### C BC, BMP #### [address] Chloride [Moles/volume] in S sonny or PlasmaOrdered By: Chhaya Gautam on 04-16-2023 Chloride [Moles/Vol] 110 mmol/L High 98-107 [facility] Comment on above: Performed By: #### C BC, BMP #### [address] Complete Blood Count Auto Di ffon 04-16-2023 Mean Corpuscular HGB Conc 34.7 g/dL Normal 32.0-35.0 [facility] Comment on above: Performed By: #### C BC, BMP #### [address] NRBC% 0.2 /100{WBC} Normal 0-0.5 [facility] Comment on above: Performed By: #### C BC, BMP #### [place] [address] [place] Creatinine [Mass/volume] in Serum or PlasmaOrdered By: Chhaya Gautam on 04-16-2023 Creatinine [Mass/Vol] 0.79 mg/dL Normal 0.60-1.20 [facility] Comment on above: Performed By: #### C ANGEL, BMP #### [address] ECG 12 lead ECGon 04-16-2023 ECG 12 lead ECG [facility] Main [place] [address] [place] [address] Electrocardiograph Report Signed Patient: Vanessa Schroeder MR#: [id number] 28 : 1980 Acct:[id number] Age/Sex: 42 / F ADM Date: 04/16/23 Loc: Room: Type: [facility] Attending Dr: Chhaya Gautam MD Ordering Provider: Chhaya Gautam MD Date of Service: 04/16/2301/04/1123 ECG/ECG 12 lead ECG: surgery 04-30-2023 Copies to: Test Reason : Blood Pressure : / mmHG Vent. Rate : 077 BPM Atrial Rate : 077 BPM P-R Int : 106 ms QRS Dur : 082 ms QT Int : 372 ms P-R-T Axes : 045 052 055 degrees QTc Int : 420 ms Sinus rhythm with short DC Otherwise normal ECG No previous ECGs available Confirmed by JORDIN CALDERON DO ([id number]) on 04/17/2023 9:15:33 AM Referred By: DAIN Electronically Signed By:JORDIN CALDERON DO Transcribed By: MUS Signed By Jordin Calderon DO 04/17 0915 Normal [facility] Erythrocyte distribution wid th [Ratio] by Automated countOrdered By: Chhaya Gautam on 04-16-2023 Erythrocyte distribution width (RBC) [Ratio] 13.1 % Normal 11.9-15.3 [facility] Comment on above: Performed By: #### C ANGEL, BMP #### [place] [address] [place] Erythrocytes [#/volume] in B lood by Automated countOrdered By: Chhaya Gautam on 04-16-2023 RBC (Bld) [#/Vol] 4.53 10*6/uL Normal 3.60-5.00 [facility] Comment on above: Performed By: #### C ANGEL, BMP #### [address] Glucose [Mass/volume] in Ser um or PlasmaOrdered By: Chhaya Gautam on 04-16-2023 Glucose [Mass/Vol] 81 mg/dL Normal 70-100 [facility] Comment on above: ADA recommended refe rence rangeRandom Glucose Reference Range is dependent on time and content of last meal. Glucose of more than 200 mg/dL in a nonstressed, ambulatory subject supports the diagnosis of Diabetes Mellitus. Result Comment: Grass Range om Glucose Reference Range is dependent on time and content of last meal. Glucose of more than 200 mg/dL in a nonstressed, ambulatory subject supports the diagnosis of Diabetes Mellitus. ADA recommended reference range Performed By: #### C ANGEL, BMP #### [address] Hematocrit [Volume Fraction] of Blood by Automated countOrdered By: Chhaya Gautam on 04-16-2023 Hematocrit (Bld) [Volume fraction] 42.7 % Normal 34.0-46.4 [facility] Comment on above: Performed By: #### C ANGEL, BMP #### [address] Hemoglobin [Mass/volume] in BloodOrdered By: Chhaya Gautam on 04-16-2023 Hemoglobin (Bld) [Mass/Vol] 14.8 g/dL Normal 11.8-15.4 [facility] Comment on above: Performed By: #### C ANGEL, BMP #### [address] Leukocytes [#/volume] correc jeevan for nucleated erythrocytes in Blood by Automated counOrdered By: Chhaya Gautam on 04-16-2023 WBC corrected for nucl RBC Auto (Bld) [#/Vol] 6.5 10*3/uL 3.8-11.6 [facility] Leukocytes [#/volume] in Blo od by Automated countOrdered By: Chhaya Gautam on 04-16-2023 WBC (Bld) [#/Vol] 6.5 10*3/uL Normal 3.8-11.6 [facility] Comment on above: Performed By: #### C BC, BMP #### [address] Lymphocytes [#/volume] in Bl ood by Automated countOrdered By: Chhaya Gautam on 04-16-2023 Lymphocytes (Bld) [#/Vol] 2.6 10*3/uL Normal 1.00-4.8 [facility] Comment on above: Performed By: #### C BC, BMP #### [address] Lymphocytes/100 leukocytes i n Blood by Automated countOrdered By: Chhaya Gautam on 04-16-2023 Lymphocytes/100 WBC (Bld) 40.3 % Normal . [facility] Comment on above: Performed By: #### C BC, BMP #### [address] MCH [Entitic mass] by Automa jeevan countOrdered By: Chhaya Gautam on 04-16-2023 MCH (RBC) [Entitic mass] 32.6 pg Normal 24.7-34.3 [facility] Comment on above: Performed By: #### C BC, BMP #### [address] MCHC Auto (RBC) [Mass/Vol]Or dered By: Chhaya Gautam on 04-16-2023 MCHC (RBC) [Mass/Vol] 34.7 g/dL 32.0-35.0 [facility] MCV [Entitic volume] by Auto mated countOrdered By: Chhaya Gautam on 04-16-2023 MCV (RBC) [Entitic vol] 94.1 fL Normal 80-100 [facility] Comment on above: Performed By: #### C BC, BMP #### [address] Neutrophils [#/volume] in Bl ood by Automated countOrdered By: Chhaya Gautam on 04-16-2023 Neutrophils (Bld) [#/Vol] 3.1 10*3/uL Normal 1.8-7.7 [facility] Comment on above: Performed By: #### C ANGEL, DELMI #### [facility] [address] [place] [address] No Panel InformationOrdered By: Chhaya Gautam on 04-16-2023 Estimated GFR (CKD-EPI) > 60.0 mL/Min [facility] Creatinine Clearance (Chem N/A [facility] Nucleated erythrocytes [Pres ence] in Blood by Automated countOrdered By: Chhaya Gautam on 04-16-2023 Nucleated RBC Auto Ql (Bld) 0.2 /100{WBC} 0-0.5 [facility] PST Type and Screenon 2022 ABO and Rh group Nom (Bld) Blood group O Rh(D) positive Normal [facility] Comment on above: Order Comment: Date of Surgery: [id number] Platelet mean volume [Entiti c volume] in Blood by Automated countOrdered By: Chhaya Gautam on 04-16-2023 Platelet mean volume (Bld) [Entitic vol] 7.2 fL Normal 6.3-10.7 [facility] Comment on above: Performed By: #### C ANGEL, BMP #### [facility] [address] [place] [address] Platelets [#/volume] in Bloo d by Automated countOrdered By: Chhaya Gautam on 04-16-2023 Platelets (Bld) [#/Vol] 325 10*3/uL Normal 150-450 [facility] Comment on above: Performed By: #### C ANGEL, BMP #### [facility] [address] [place] [address] Potassium [Moles/volume] in Serum or PlasmaOrdered By: Chhaya Gautam on 04-16-2023 Potassium [Moles/Vol] 4.3 mmol/L Normal 3.5-5.1 [facility] Comment on above: Performed By: #### C ANGEL, BMP #### [facility] [address] [place] [address] Serum or plasma anion gap de terminationOrdered By: Chhaya Gautam on 04-16-2023 Anion gap [Moles/Vol] 10.4 mmol/L Normal 6.0-15.0 [facility] Comment on above: Performed By: #### C BC, BMP #### [facility] [address] Sodium [Moles/volume] in Ser um or PlasmaOrdered By: Chhaya Gautam on 04-16-2023 Sodium [Moles/Vol] 139 mmol/L Normal 136-145 [facility] Comment on above: Performed By: #### C BC, BMP #### [facility] [address] Urea nitrogen [Mass/volume] in Serum or PlasmaOrdered By: Chhaya Gautam on 04-16-2023 Urea nitrogen [Mass/Vol] 12 mg/dL Normal 7-25 [facility] Comment on above: Performed By: #### C BC, BMP #### [facility] [address] XR lumbar spine 6V w bending on 12-07-2022 XR lumbar spine 6V w bending [facility] [employer] Other XR lumbar spine 6V w bending [facility] [employer] [facility] [employer] Other XR lumbar spine 6V w bending [address] [place] [address] [employer] Other XR lumbar spine 6V [place] [address] [address] [employer] [facility] [employer] Other XR lumbar spine 6V w bending XRay Report [employer] Other XR lumbar spine 6V w bending Signed [employer] Other XR lumbar spine 6V w bending Patient: Vanessa Schroeder MR#: [id number] [employer] Other XR lumbar spine 6V w bending 28 [employer] Other XR lumbar spine 6V w bending : 1980 Acct:[id number] [employer] Other XR lumbar spine 6V w bending Age/Sex: 42 / F ADM Date: 12/07/22 [employer] Other XR lumbar spine 6V w bending Loc: XDS Room: Type: [facility] [employer] Other XR lumbar spine 6V w bending Attending Dr: Quentin Rojas DO [employer] Other XR lumbar spine 6V w bending Copies to: Quentin Rojas DO [employer] Other XR lumbar spine 6V w bending Ordering Provider: Quentin Rojas DO [employer] Other XR lumbar spine 6V w bending Date of Service: 12/07/22 [employer] Other XR lumbar spine 6V w bending XR/XR lumbar spine 6V w bending: Lumbosacral radiculopathy;Sci[employer] a of [employer] Other XR lumbar spine 6V w bending left side [employer] Other XR lumbar spine 6V w bending LUMBAR SPINE COMPLETE WITH FLEXION AND EXTENSION VIEWS - 8 views: [employer] Other XR lumbar spine 6V w bending CLINICAL HISTORY: Low back pain with burning at the left leg and tingling at the foot. No recent [employer] Other XR lumbar spine 6V w bending injury. [employer] Other XR lumbar spine 6V w bending COMPARISON: 11/01/2010 [employer] Other XR lumbar spine 6V w bending Standing AP, lateral (neutral, flexion and extension), both oblique and AP and lateral coned-down [employer] Other XR lumbar spine 6V w bending views of the lumbosacral junction were obtained. There is subtle dextroscoliotic curvature. [employer] Other XR lumbar spine 6V w bending There is no evidence of fracture. There is increasing anterolisthesis of L5 on S1 due to bilateral [employer] Other XR lumbar spine 6V w bending L5 spondylolysis. The spondylolisthesis measures almost 2 cm at this time and was previously 8 mm. [employer] Other XR lumbar spine 6V w bending Alignment is otherwise maintained. There is no instability with flexion or extension. There is [employer] Other XR lumbar spine 6V w bending slight disc space narrowing at L3-4 and L4-5 and loss of disc space at the lumbosacral junction. [employer] Other XR lumbar spine 6V w bending There is minimal endplate spurring. There is lower lumbar facet disease. The sacroiliac joints are [employer] Other XR lumbar spine 6V w bending maintained and show minor sclerosis.. There are no paraspinal soft tissue abnormalities. 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 [employer] Other XR lumbar spine 6V w bending SUBTLE SCOLIOSIS AND MILD DEGENERATIVE CHANGES. [employer] Other XR lumbar spine 6V w bending Impression dictated by: Kathy Alcantara M.D.12/07/2022 3:05 PM [employer] Other XR lumbar spine 6V w bending Dictation Location: [place] [address] [employer] Other XR lumbar spine 6V w bending Transcribed By: BERNADETTE 12/07/22 1505 [employer] Other XR lumbar spine 6V w bending Dictated By: Kathy Alcantara MD 12/07/22 1500 [employer] Other XR lumbar spine 6V w bending Signed By: [employer] Other XR lumbar spine 6V w bending 12/07/22 1505 [employer] Other Coding Summary.on 12-05-2022 Coding Summary. [id number] G h0bWw+PGhlYWQ+LU5DNOK vE31vvKPsrH1TV1cJFB7T GNAOWPXWIZ0VQB4fxOU4B LyrT5AwwcTt NrnsoOSiCI54TUq8NEO0p WebUVwgrC1ewJPjF9w8Dd ZwCO33kG54ZCkzZULtAhV 3LjZpbjsgbWFy T2vyOvKicSFuUox+PHRhY mxlIHdpZHRoPScxMDAlJy FygCueQX1qAb9hDJTwCVG vbGxhcHNlOiBj b3roGLRyRHayJO9utNdaV 5TgoAY0EIIuu0z8Ni73sU I+DKAtRVF8wWxxMEazs00 7HsAqa2ptMYN7 hQNwVYnaVYV6B98ex3E9Y TRxUUXdLGY7bXS7wI3toZ hlawfhV4XeuXEfSeQ3TSY 2sGYheL9brIjt plwvhZ5yNqm+M16IZM4YE TIBDU2HGbj0L2UjLvuqyC I+XA56RMFqPM16iKEpjMI ya0ycwWe6NuNl REVaMKN2xTovGTswo5SoR IPuC98kxANok9I0YAJrvE nwdHGeXmTfbTO2xL2bTXv tscqra5dpazze Cbkcc7xcdt29jJ15J25zX EmcGERpSIG8PECkRTHgqH pxin4yzP9xJa0+MYrsv5w gs3wxkEn0ImOn JYCdoxSqmItzYSX2d9DaI r59P6BbgKaie6PsBep7dg 33uYDxh0V0vLB7KIjnNMX vkG8qLZpmLgS9 NQStBfUcuD31pVCbFUhxS k3btJhwhYmaAB3dICWxby yhWJPehX5oXYBgwJGggGf sEU3yJOVoymdh m484PiMbYGG3FXQtbHCwO 6SoyJ9bHdFbVRPvTNTrR7 PlsCWiWKdpI230ETjqPwC 2PDBtexZwV3Pw CWBvvGxgRgC4d9D6Xg1Fr 1XmaenoHWC1TVuoIDCdUw IdDgZpZsU4R8NpRls7FEJ azEscNM8oX1Gd ADHlgdhxmhxggHI7SEGrU AGpzH95iMIePUreGy1hr5 W6g021GWKcQYYkaX28Pb6 udDogMTBwdCBU sV8gwypwe2fxgdrmVlWdQ WSyNCc2AOp7WMLimSvlDc BbAYT7IrO6XGR5iRTzdY7 peOziedvhiR2e Oyc+O59wgL0wILD8XAS2d spmFILaybLvRT87GY59H4 RyPjwvdGFibGU+PGRpdiB gtTjdUG0hXgJs b5tyr9AhASfhJ8HgMXShC JtiMws2AYRtUVE2kHG6dP 7kDFXjBZlby2Z3uQM0W6Q wvkUsjq2cd0aa IWEiSVaxU11piTUnd4H8F KYxpWC0ZPLiqMrrOyUrsM 93Oyc+SNVjuAoug0WuRlv mx0bfn9godPw7 OeBeAUVjcpKdjIyiFIG9i 1KoDi03Y10tROnpYHTrOX XgYTJdIHWszCkldu7duO6 wIi8+PGNvbCB3 pEM9eY8sAYHoYxR3BYqtH 959ScUrlTWrNksdg2sby0 wmfUt4PdOnKDTzpiJsoQo gZVI2o0YjMn52 C51eZHxeAXLjDTLzNQFmF TUawLjtve3pgV3mFz9+PC 8ks1jyfq56cV78zPJ+PHR rVHV6yYcrWFrf HHPayZ2vQSxnAmV2IQEfP oSznD58uOXqBBmlHz5tzS lzeAkpZW3hHXJlmsphb89 5KqSzb7jiWRBi bXEyOVveUWA8S56gd0T7H KBkPPSrRJE2iHG2fP0euN lnbjogbGVmdDsgdmVydGl eWBivWAlaS891 IHRvcDsnPlBhdGllbnQgT tZkAIk1Q0UtCni1ZMNwoT diHU7uhAYbRMkjVt5ohSr nrKzkMR4lDIJj slmlg077ScGso7rqLYVoa KRcIKkoUOY6D75wl4J0SD EjIZMaQXG3fDG5tT2reGq nbjogbGVmdDsg tvHbiRklWRqyFAluA722K HRvcDsnPkJpcnRoIERhdG Z0JN47GK36aETey7W4cHV 6H3MoHJPxlrqf ixsdlVF0NAJjEMBqtE80R v2soBtlLx4gDTVuYDT1IO AjbTBcE3NqtK8qScKpJVO zKVRkK0VqlXUr EPneU817HYcdHbS3ZOBks qGjK7LsIJBvcZwxScN0i5 A5Uu3ZP8E3JW65XD51wPS ov3X5eWO7L0Mt BDRuiskeipczgRJ1WJFnK IOpwI07Do4lzNnvQp7zHK PrRHO4ZWQcbKSiY9OytW8 yOiAjMDAwMDAw F6HpzJYcMVhoR124YNynH yJ7LADvxbEvN0WdHGWqcP gkNqV8v7G0Zt2MLZk5AK7 3KV53sIRtb9Z1 cZJ8A7PbSLRtlimxhdilx AG1BIXrSEIyeJ66Ab8etQ xrXf3hBHNnRSM9ZGGuaPP lP6QssM2qRoKu FNNrVBYrT7GjlXYgWCatT 213IPbsHoR4QBQugaDoT5 RqLHNhfSxmXkR0n9K1Gj9 VMYQlGG36YDN0 wZM2ND83ES44A3HyDgefb GFibGU+PHRhYmxlIHdpZH RoPScxMDAlJyBzdHlsZT0 bHu9fIDYdVVHx tCmtlYYtZyNdm2bbSDAkI KbiIU4leTnpI5KsxGI4UO Vyv3f1Hn85K77xV8OuzCW +LWHmmKO7eXR0 hH8pRuLjDoA0RXssX121P dLbbFFfQqxrj9jph2ooaH t8DfU7RTEenlJbeWvhXDC 2e0AlGy26I64m IHdpZHRoPSIxNSUiIHZhb Xoyvd3naE4dEy0+PGNvbC V5oZQ4pH7sBnOtKvV6FSo cI895EkMrwJLp Byvkg6igv4ninMj6FuMaL DIvpgAmcNbuMNG0v8VxMk 44P8AreHmvh7CeWmj4iu4 4iGLev1S2sGW4 K7CoDKMltldfaQUfwDwkK F5gHPWlrycyVFXvxL4wEN IqB9a4GhSfCtZ1LCkjH2X bivU1TPKvhLCy PAfiUZU2H86ll3E1HIWkI KCkXZF9pLF1jZ8bzWvuua ogbGVmdDsgdmVydGljYWw hRHqwU948QPCm yOvfGOEgxU9zKLTyoUOwi HowEU6pOFZmlmdgYyAIBo 5QWFBZSS2TUZVIJCjnfZU +OOGxKSR0aDmd DFlqUZXvsK5mEFAzX0m6I rOzYnG3YVlfV5PiFQNvfd aeIv66bB2mKcDoTlR2NWk nH3TilxN8LHEa oDXeELqbGTQ3P58pp8C2O BTzMKCoIHA5gZB1uC4toO lnbjogbGVmdDsgdmVydGl qNTtcZOqdM258 XKKeuQegTxQ5JqL0LcL0Y pf4D0CkWky6ISPehJyuYF 5pmOBrMNtnXo0wuZdtbLl qAM7wPGNqmqpd QCGrgL3dLHKusCEinNalB K0kLZHsnkgvl826KqMsCL X3NCXeqGKrG4UdsN9mTuU iMELyABDsK1Uo tQBxYWyeP264LJquGbR4A UButjXtW3WfMOKkvJviZo F6l1I0Fi61EQKADQPdvsi vdGQ+PHRkIHN0 hIhzGSckTUCiyG4sEEWvA 5o1ZyCyQrE0RFtkN5DyRQ IsvrvaIu55eA9rSeEgIqP 6BEagC6NcmfK5 GYDkaGIhNIpxAOC3Y36ip 4A3SUEzWIYyETL2tGE5wH 1hbGlnbjogbGVmdDsgdmV ydGljYWwtYWxp Y804RRSnyQuoJwLkxQYjX TwvdGQ+LUGeGHO6vEvfHC trLPYhfR2jIJDlD9l4QvP kPhQ0TNlaY6Rf MOJcasbjLh58dB7zKeYaE eL7NWzjA9SyvtQ4DKTutD IwMTpsOXQ3Y24wy2J8XTY oBUTdKLX0oCN2 xU7ctGoytagozPRrhXibw qOnjXxkYWkfCUgaB476KT BgbCqyAv80rFYbwRkubbC 8B3YxHpbdfAP+ RY99KGFrBU02pREnmSUuv 0kgqXw6HdQxOKGwLYZ2iO nfKHtnt1KqYCLhH30lcFZ uo7N1VDPxcOni cVWePaWwoPQ2eL4iTCsmy gshn2wxvihmCzdil9lwbg 48dA34B02eNLenUXRzFNF zMCUiIHZhbGln ti3jlQ0dIg4+OHMqyNC8b FQ1pY6wPePlNjX9UFvtF7 91CwPubKZwVbcqu8zgq3u wmPp2UgIqNCMs gjNckWldTOA7f9IwFt71J 29sIHdpZHRoPSIyMCUiIH IsqOsqag7twK0bJh7+PC9 pg4ddyz45fJ44 dHI+BYHvWUP0pRgeXRjgR QMxkS3jMAyrTiK0PLChYb OlfL05fDEpAQxdAi3unLz pbFscZO1hQWYn qvuxs347YjLvt0amYBJvc LGvUZlfHYG7J77is8D2WN TzQJVfBUW4sYR5jJ7ujSx nbjogbGVmdDsg cdBmdEflJNbkHHjoK234G QRotGvvZcUwpDKiV7djeq YRCQ3rLxgmkVD+PHRkIHN 0eWxlPSdwYWRk aO5lLBBwZ8h4SvFoTtD0L BwnW9PlcrA9SYIqoKGuXK MflVFIeG8eutsun0gfnta gIzAwMDAwMDt0 VVk8SDScoXjvWpDiRER0L sK3BTH1rVAopU3wcThamp iyuO4mYsg+RklOOjwvdGQ +OAUgLQO9mSwx MEziHRXytY7hKURmC0c7D lIkRdW0APcaY5SbuxZ3BQ PyiKHiFYOahMDKiY4ftds nk8yjfkhqIgCe KCScRRo0JUk9DXAndPumM tCqADF1HaX1BGY3iVNyjR 2jfKyujwwacG9vNqb+TVJ OOjwvdGQ+PHRk TCG8lJruNSbhRQNygO9rE XQuD1u9DjSvTyV9DOmzE4 EdinL5GAMzxQEiGUNdaTN SuZ7hngxym6fw boxfGvVwLAEnSFo3BIg0L PRjzFsgIvArOSJ4HsG8BY C0mGIpcY5ikOytzpccmO5 wOyc+VIJ0ZET2 YE78KD36L4IyFyjrwXMlx +PHRhYmxlIHdpZHRoPS fzAVCeTiAwgCpkIC3rMf3 yZGVyLWNvbGxh cHNl (more content not included)... Normal [facility] Urine 10 SGon 04-11-2022 Albumin DL <= 20 mg/L (U) [Mass/Vol] Negative [facility] Other pH (U) 5.5 [pH] [facility] Other Urine 10 SG Negative [facility] Other Urine 10 SG 1.030 [facility] Other Urine 10 SG 0.2 [facility] Other SARS-CoV-19 Abon 07-30-2020 SARS-CoV-19 Ab, Tot Negative Normal NEG [facility] Comment on above: Result Comment: Negative results do not rule out SARS-CoV-2 infection, particularly in those who have been in contact with the virus. Follow-up testing with a molecular diagnostic should be considered to rule out infection in these individuals. Results from antibody testing should not be used as the sole basis to diagnose or exclude SARS-CoV-2 infection or to inform infection status. This test has been authorized by the FDA under an Emergency Use Authorization (EUA) for use by authorized laboratories. Fact sheet for Healthcare Providers: https://www.fda.gov/media/988603/download Fact sheet for Patients: https://www.fda.gov/media/952762/download METHODOLOGY: ECIA Performed By: #### C OVAB #### [address] [place] [address] Physicist [place]: Tray Rodgers MD Covid-19, Antibody, Totalon 07-29-2020 SARS-CoV-2, Total Negative NEGATIVE [facility] [place], [place] Comment on above: Negative results do not rule out SARS-CoV-2 infection, particularly in those who have been in contact with the virus. Follow-up testing with a molecular diagnostic should be considered to rule out infection in these individuals. Results from antibody testing should not be used as the sole basis to diagnose or exclude SARS-CoV-2 infection or to inform infection status. This test has been authorized by the FDA under an Emergency Use Authorization (EUA) for use by authorized laboratories. Fact sheet for Healthcare Providers: https://www.fda.gov/media/558180/download Fact sheet for Patients: https://www.fda.gov/media/841932/download METHODOLOGY: ECIA Vital Signs Date Time Vital Sign Value Performing Clinician Facility 04-28-2024 [id number] Body height 162.56 cm DO Quentin Gameriuss Work Phone: [facility] 04-28-2024 10:07-0400 Body mass index (BMI) [Ratio] 32.1 kg/m2 DO Quentin Kuns Work Phone: [facility] 04-28-2024 10:07-0400 Body weight 84.82 kg DO Quentin Gameriuss Work Phone: [facility] 04-28-2024 10:07-0400 Diastolic blood pressure 80 mm[Hg] DO Quentin Gameriuss Work Phone: [facility] 04-28-2024 10:07-0400 Heart rate 87 /min DO Quentin Gameriuss Work Phone: [facility] 04-28-2024 10:07-0400 Respiratory rate 18 /min DO Quentin Gameriuss Work Phone: [facility] 04-28-2024 10:07-0400 SaO2% (BldA) [Mass fraction] 98 % DO Quentin Kuns Work Phone: [facility] 04-28-2024 10:07-0400 Systolic blood pressure 118 mm[Hg] DO Quentin Kuns Work Phone: [facility] 03-20-2024 15:00-0400 Body height 162.56 cm DO Quentin Kuns Work Phone: [facility] 03-20-2024 15:00-0400 Body mass index (BMI) [Ratio] 32.8 kg/m2 DO Quentin Kuns Work Phone: [facility] 03-20-2024 15:00-0400 Body weight 86.63 kg DO Quentin Kuns Work Phone: [facility] 01-10-2024 12:48-0400 Body height 162.56 cm DO Quentin Kuns Work Phone: [facility] 01-10-2024 12:48-0400 Body mass index (BMI) [Ratio] 33.3 kg/m2 DO Quentin Kuns Work Phone: [facility] 01-10-2024 12:48-0400 Body weight 87.99 kg DO Quentin Kuns Work Phone: [facility] 01-10-2024 12:48-0400 Diastolic blood pressure 82 mm[Hg] DO Quentin Kuns Work Phone: [facility] 01-10-2024 12:48-0400 Heart rate 92 /min DO Quentin Kuns Work Phone: [facility] 01-10-2024 12:48-0400 Respiratory rate 18 /min DO Quentin Kuns Work Phone: [facility] 01-10-2024 12:48-0400 SaO2% (BldA) [Mass fraction] 97 % DO Quentin Kuns Work Phone: [facility] 01-10-2024 12:48-0400 Systolic blood pressure 120 mm[Hg] DO Quentin Kuns Work Phone: [facility] 11-27-2023 11:07-0500 Body height 162.56 cm DO Quentin Kuns Work Phone: [facility] 11-27-2023 11:07-0500 Body mass index (BMI) [Ratio] 33.5 kg/m2 DO Quentin Kuns Work Phone: [facility] 11-27-2023 11:07-0500 Body weight 88.45 kg DO Quentin Kuns Work Phone: [facility] 11-27-2023 11:07-0500 Diastolic blood pressure 72 mm[Hg] DO Quentin Kuns Work Phone: [facility] 11-27-2023 11:07-0500 Heart rate 100 /min DO Quentin Kuns Work Phone: [facility] 11-27-2023 11:07-0500 Respiratory rate 18 /min DO Quentin Kuns Work Phone: [facility] 11-27-2023 11:07-0500 SaO2% (BldA) [Mass fraction] 97 % DO Quentin Kuns Work Phone: [facility] 11-27-2023 11:07-0500 Systolic blood pressure 104 mm[Hg] DO Quentin Kuns Work Phone: [facility] 10-19-2023 10:20-0500 Body height 162.56 cm Chhaya Gautam Other [facility] 10-19-2023 10:20-0500 Body mass index (BMI) [Ratio] 32.44 kg/m2 Chhaya Gautam Other [facility] Other 10-19-2023 10:20-0500 Body weight 85.73 kg Chhaya Gautam Other [facility] Other 10-19-2023 10:20-0500 Body weight 85.72 kg DO Quentin Kuns Work Phone: [facility] 07-19-2023 15:20-0400 Body height 162.56 cm Chhaya Gautam Other [facility] Other 07-19-2023 15:20-0400 Body mass index (BMI) [Ratio] 32.44 kg/m2 Chhaya Gautam Other [facility] Other 07-19-2023 15:20-0400 Body weight 85.73 kg Chhaya Gautam Other [facility] Other 07-12-2023 13:30-0400 Body height 162.56 cm Quentin Philippes Other [facility] Other 07-12-2023 13:30-0400 Body mass index (BMI) [Ratio] 32.51 kg/m2 Quentin Philippes Other [facility] Other 07-12-2023 13:30-0400 Body weight 85.91 kg Quentin Kuns Other [facility] Other 07-12-2023 13:30-0400 Diastolic blood pressure 60 mm[Hg] Quentin Kuns Other [facility] Other 07-12-2023 13:30-0400 Respiratory rate 16 /min Quentin Kuns Other [facility] Other 07-12-2023 13:30-0400 SaO2% (BldA) [Mass fraction] 99 % Quentin Kuns Other [facility] Other 07-12-2023 13:30-0400 Systolic blood pressure 102 mm[Hg] Quentinanastacia Rojas Other [facility] Other 06-14-2023 14:40-0400 Body height 162.56 cm Chhaya Gautam Other [facility] Other 06-14-2023 14:40-0400 Body mass index (BMI) [Ratio] 32.09 kg/m2 Chhaya Gautam Other [facility] Other 06-14-2023 14:40-0400 Body weight 84.82 kg Chhaya Gautam Other [facility] Other 05-15-2023 11:00-0400 Body height 162.56 cm Chhaya Dain Other [facility] Other 05-15-2023 11:00-0400 Body mass index (BMI) [Ratio] 31.24 kg/m2 Chhaya Dain Other [facility] Other 05-15-2023 11:00-0400 Body weight 82.56 kg Chhaya Gautam Other [facility] Other 05-15-2023 11:00-0400 Diastolic blood pressure 80 mm[Hg] Chhayacora Gautam Other [facility] Other 05-15-2023 11:00-0400 Systolic blood pressure 124 mm[Hg] Chhayacora Gautam Other [facility] Other 05-02-2023 02:50-0400 Body temperature 98.2 [degF] DO Quentin Rojas Work Phone: [facility] 05-02-2023 02:50-0400 Diastolic blood pressure 65 mm[Hg] DO Quentin Kuns Work Phone: [facility] 05-02-2023 02:50-0400 Heart rate 65 /min DO Quentin Kuns Work Phone: [facility] 05-02-2023 02:50-0400 Respiratory rate 18 /min DO Quentin Kuns Work Phone: [facility] 05-02-2023 02:50-0400 SaO2% (BldA) [Mass fraction] 97 % DO Quentin Kuns Work Phone: [facility] 05-02-2023 02:50-0400 Systolic blood pressure 104 mm[Hg] DO Quentin Kuns Work Phone: [facility] 04-30-2023 10:19-0400 Inhaled oxygen flow rate 8 L/min DO Quentin Kuns Work Phone: [facility] 04-30-2023 08:30-0400 Body height 157.48 cm DO Quentin Kuns Work Phone: [facility] 04-30-2023 08:30-0400 Body mass index (BMI) [Ratio] 33.5 kg/m2 DO Quentin Kuns Work Phone: [facility] 04-30-2023 08:30-0400 Body weight 83 kg DO Quentin Kuns Work Phone: [facility] 04-03-2023 09:20-0400 Body height 162.56 cm Chhaya Gautam Other [facility] Other 04-03-2023 09:20-0400 Body mass index (BMI) [Ratio] 30.89 kg/m2 Chhaya Gautam Other [facility] Other 04-03-2023 09:20-0400 Body weight 81.65 kg Chhaya Gautam Other [facility] Other 04-03-2023 09:20-0400 Diastolic blood pressure 80 mm[Hg] Chhaya Gautam Other [facility] Other 04-03-2023 09:20-0400 Systolic blood pressure 110 mm[Hg] Chhaya Gautam Other [facility] Other 03-02-2023 09:30-0400 Body height 162.56 cm [employer] Other [facility] Other 03-02-2023 09:30-0400 Body mass index (BMI) [Ratio] 30.04 kg/m2 [employer] Other [facility] Other 03-02-2023 09:30-0400 Body weight 79.38 kg [employer] Other [facility] Other 03-02-2023 09:30-0400 Diastolic blood pressure 78 mm[Hg] [employer] Other [facility] Other 03-02-2023 09:30-0400 Systolic blood pressure 114 mm[Hg] [employer] Other [facility] Other 01-31-2023 13:30-0400 Body height 162.56 cm Quentin Rojas Other [facility] Other 01-31-2023 13:30-0400 Body mass index (BMI) [Ratio] 30.89 kg/m2 Quentin Gameriusdami Other [facility] Other 01-31-2023 13:30-0400 Body weight 81.65 kg Quentinanastacia Rojas Other [facility] Other 01-31-2023 13:30-0400 Diastolic blood pressure 70 mm[Hg] Quentin Rojas Other [facility] Other 01-31-2023 13:30-0400 Respiratory rate 16 /min Quentin Rojas Other [facility] Other 01-31-2023 13:30-0400 SaO2% (BldA) [Mass fraction] 98 % Quentin Rojas Other [facility] Other 01-31-2023 13:30-0400 Systolic blood pressure 116 mm[Hg] Quentin Kuns Other [facility] Other 01-18-2023 11:20-0400 Body height 162.56 cm [employer] Other [facility] Other 01-18-2023 11:20-0400 Body mass index (BMI) [Ratio] 30.89 kg/m2 [employer] Other [facility] Other 01-18-2023 11:20-0400 Body weight 81.65 kg [employer] Other [facility] Other 01-18-2023 11:20-0400 Diastolic blood pressure 80 mm[Hg] [employer] Other [facility] Other 01-18-2023 11:20-0400 SaO2% (BldA) [Mass fraction] [employer] Other [facility] Other 01-18-2023 11:20-0400 Systolic blood pressure 120 mm[Hg] [employer] Other [facility] Other 12-28-2022 13:30-0400 Body height 162.56 cm Quentin Kuns Other [facility] Other 12-28-2022 13:30-0400 Body mass index (BMI) [Ratio] 30.72 kg/m2 Quentin Kuns Other [facility] Other 12-28-2022 13:30-0400 Body weight 81.19 kg Quentin Kuns Other [facility] Other 12-28-2022 13:30-0400 Diastolic blood pressure 70 mm[Hg] Quentin Kuns Other [facility] Other 12-28-2022 13:30-0400 Respiratory rate 16 /min Quentin Kuns Other [facility] Other 12-28-2022 13:30-0400 SaO2% (BldA) [Mass fraction] 98 % Quentin Kuns Other [facility] Other 12-28-2022 13:30-0400 Systolic blood pressure 124 mm[Hg] Quentin Kuns Other [facility] Other 12-07-2022 13:30-0500 Body height 162.56 cm Quentin Kuns Other [facility] Other 12-07-2022 13:30-0500 Body mass index (BMI) [Ratio] 30.38 kg/m2 Quentin Kuns Other [facility] Other 12-07-2022 13:30-0500 Body weight 80.29 kg Quentin Kuns Other [facility] Other 12-07-2022 13:30-0500 Diastolic blood pressure 70 mm[Hg] Quentin Kuns Other [facility] Other 12-07-2022 13:30-0500 Respiratory rate 18 /min Quentin Kuns Other [facility] Other 12-07-2022 13:30-0500 SaO2% (BldA) [Mass fraction] 99 % Quentin Kuns Other [facility] Other 12-07-2022 13:30-0500 Systolic blood pressure 100 mm[Hg] Quentin Kuns Other [facility] Other 04-11-2022 13:30-0400 Body height 162.56 cm Quentin Kuns Other [facility] Other 04-11-2022 13:30-0400 Body mass index (BMI) [Ratio] 32.61 kg/m2 Quentin Kuns Other [facility] Other 04-11-2022 13:30-0400 Body weight 86.18 kg Quentin Kuns Other [facility] Other 04-11-2022 13:30-0400 Diastolic blood pressure 85 mm[Hg] Quentin Kuns Other [facility] Other 04-11-2022 13:30-0400 Respiratory rate 20 /min Quentin Kuns Other [facility] Other 04-11-2022 13:30-0400 SaO2% (BldA) [Mass fraction] 97 % Quentin Kuns Other [facility] Other 04-11-2022 13:30-0400 Systolic blood pressure 120 mm[Hg] Quentin Paezs Other [facility] Other 10-04-2021 09:00-0500 Body height 162.56 cm Quentin Kuns Other [employer] Other Encounters Encounter Date Encounter Type Care Provider Facility Start: 05-27-2024 End: 05-27-2024 ambulatory YULIANAROXANA MADAI Not Available Start: 05-12-2024 End: 05-12-2024 ambulatory Malinda Malik MD Facility:[facility] Start: 04-28-2024 End: 04-28-2024 ambulatory DO Quentin Kuns Work Phone: [facility] Work Phone: Start: 04-28-2024 End: 04-28-2024 Patient encounter procedure DO Quentin Kuns Work Phone: [facility] [place] Work Phone: Start: 04-14-2024 End: 04-14-2024 ambulatory Malinda Malik MD Facility:[facility] Start: 03-20-2024 End: 03-20-2024 ambulatory DO Quentin Kuns Work Phone: [facility] Work Phone: Start: 03-20-2024 End: 03-20-2024 Patient encounter procedure DO Quentin Kuns Work Phone: [facility] Work Phone: Start: 03-17-2024 End: 03-17-2024 Patient encounter procedure DO Quentin Kuns Work Phone: [facility] Start: 03-17-2024 End: 03-17-2024 ambulatory DO Quentin Kuns Work Phone: [facility] Work Phone: Start: 02-07-2024 Non-patient / Non-visit DO Quentin Kuns Work Phone: [facility] [place] Work Phone: Start: 01-10-2024 End: 01-10-2024 ambulatory DO Quentin Kuns Work Phone: [facility] Work Phone: Start: 01-10-2024 End: 01-10-2024 Encounter for general adult medical examination without abnormal findings DO Quentin Kuns Work Phone: [facility] Start: 01-10-2024 End: 01-10-2024 Patient encounter procedure DO Quentin Kuns Work Phone: [facility] [place] Work Phone: Start: 12-06-2023 Non-patient / Non-visit DO Quentin Kuns Work Phone: [facility] Work Phone: Start: 12-03-2023 End: 12-04-2023 ambulatory Kat J Nely Facility:[facility] Start: 12-03-2023 End: 12-03-2023 Patient encounter procedure Kat J Nely [facility] Start: 11-27-2023 End: 11-27-2023 ambulatory DO Quentin Kuns Work Phone: [facility] Work Phone: Start: 11-27-2023 End: 11-27-2023 Patient encounter procedure DO Quentin Kuns Work Phone: [facility] [place] Work Phone: Start: 11-15-2023 End: 11-16-2023 ambulatory Kat J Nely Facility:[facility] Start: 10-19-2023 End: 10-19-2023 ambulatory Chhaya Gautam Other [facility] Other Start: 10-19-2023 Encounter for genera l adult medical examination without abnormal findings Chhaya Gautam [facility] Start: 10-19-2023 Office outpatient visit 15 minutes Chhaya Gautam [facility] Start: 10-19-2023 End: 10-19-2023 Patient encounter procedure DO Quentin Kuns Work Phone: [facility] Work Phone: Start: 10-10-2023 End: 10-10-2023 Patient encounter procedure DO Quentin Kuns Work Phone: [facility] Start: 10-10-2023 End: 10-10-2023 ambulatory DO Quentin Kuns Work Phone: [facility] Work Phone: Start: 09-13-2023 End: 09-13-2023 ambulatory JAYY MARCELLTERSALL Not Available Start: 09-03-2023 End: 09-03-2023 ambulatory LAMIN BRINK Not Available Start: 08-28-2023 End: 08-28-2023 ambulatory LAMIN BRINK Not Available Start: 07-19-2023 End: 07-19-2023 ambulatory Chhaya Gautam Other [facility] Other Start: 07-19-2023 Encounter for genera l adult medical examination without abnormal findings Chhaya Gautam [facility] Start: 07-19-2023 Postop follow up vis it related to original px Chhaya Gautam [facility] Start: 07-16-2023 End: 07-16-2023 Patient encounter procedure DO Quentin Kuns Work Phone: [facility] Start: 07-16-2023 End: 07-16-2023 ambulatory DO Quentin Kuns Work Phone: [facility] Work Phone: Start: 07-12-2023 End: 07-12-2023 ambulatory Quentin Kuns Other [facility] Other Start: 07-12-2023 Office outpatient visit 15 minutes Quentin Kuns [facility] [place] Start: 07-02-2023 End: 07-02-2023 Patient encounter procedure DO Quentin Kuns Work Phone: [facility] [place] Work Phone: Start: 07-02-2023 End: 07-02-2023 ambulatory DO Quentin Kuns Work Phone: [facility] Work Phone: Start: 06-14-2023 End: 06-14-2023 ambulatory Chhaya Gautam Other [facility] Other Start: 06-14-2023 Encounter for genera l adult medical examination without abnormal findings Chhaya Gautam [facility] Start: 06-14-2023 Postop follow up vis it related to original px Chhaya Gautam [facility] Start: 06-12-2023 End: 06-12-2023 Patient encounter procedure DO Quentin Kuns Work Phone: [facility] Start: 06-12-2023 End: 06-12-2023 ambulatory DO Quentin Kuns Work Phone: [facility] Work Phone: Start: 05-15-2023 End: 05-15-2023 ambulatory Chhaya Gautam Other [facility] Other Start: 05-15-2023 Postop follow up vis it related to original px Chhaya Gautam [facility] Start: 04-30-2023 End: 05-02-2023 Admission to same day surgery center DO Quentin Kuns Work Phone: [facility] [place] Start: 04-30-2023 End: 05-02-2023 ambulatory DO Quentin Kuns Work Phone: [facility] Work Phone: Start: 04-16-2023 End: 04-16-2023 Patient encounter procedure DO Quentin Kuns Work Phone: [facility]Pre-Surgical Testing Work Phone: Start: 04-16-2023 End: 04-16-2023 ambulatory DO Quentin Kuns Work Phone: [facility] Work Phone: Start: 04-03-2023 End: 04-03-2023 ambulatory Chhaya Gautam Other [facility] Other Start: 04-03-2023 Office outpatient visit 40 minutes Chhaya Gautam [facility] Start: 03-02-2023 End: 03-02-2023 ambulatory Janel Waite Other [facility] Other Start: 03-02-2023 Office outpatient visit 10 minutes Janel Waite [facility] Start: 02-15-2023 End: 02-15-2023 ambulatory DO Quentin Kuns Work Phone: [facility] Work Phone: Start: 02-15-2023 End: 02-15-2023 Patient encounter procedure DO Quentin Kuns Work Phone: [facility] Work Phone: Start: 02-05-2023 End: 02-05-2023 ambulatory DO Quentin Kuns Work Phone: [facility] Work Phone: Start: 02-05-2023 End: 02-05-2023 Patient encounter procedure DO Quentin Kuns Work Phone: [facility] [place] Work Phone: Start: 01-31-2023 End: 01-31-2023 ambulatory Quentin Kuns Other [facility] Other Start: 01-31-2023 Office outpatient visit 15 minutes Quentin Kuns [facility] Start: 01-22-2023 End: 01-22-2023 ambulatory DO Quentin Kuns Work Phone: [facility] Work Phone: Start: 01-22-2023 End: 01-22-2023 Discharged Recurring DO Quentin Kuns Work Phone: [facility] [place] Work Phone: Start: 01-22-2023 Registered Recurring DO Quentin Kuns Work Phone: [facility] [place] Work Phone: Start: 01-18-2023 End: 01-18-2023 ambulatory Janel Ravindra Other [facility] Other Start: 01-18-2023 Office outpatient ne w 45 minutes Janel Waite [facility] Start: 01-05-2023 End: 01-05-2023 ambulatory Quentin Kuns Other [facility] Other Start: 01-05-2023 Telephone encounter Quentin Kuns [facility] Start: 01-01-2023 End: 01-01-2023 ambulatory Quentin Kuns Other [facility] Other Start: 01-01-2023 Telephone encounter Quentin Kuns [facility] Start: 12-28-2022 End: 12-28-2022 ambulatory Quentin Kuns Other [facility] Other Start: 12-28-2022 Office outpatient visit 25 minutes Quentin Philippes [facility] [place] Start: 12-07-2022 End: 12-07-2022 Patient encounter procedure DO Quentinanastacia Paezs Work Phone: [facility] Start: 12-07-2022 End: 12-07-2022 ambulatory DO Quentin Kuns Work Phone: [facility] Work Phone: Start: 12-07-2022 Office outpatient visit 15 minutes Quentin Philippes [facility] [place] Start: 12-01-2022 End: 12-01-2022 Patient encounter procedure Kat Mckay [facility] Start: 11-13-2022 End: 11-13-2022 Lab Drop off Kat Mckay [facility] Start: 04-11-2022 End: 04-11-2022 ambulatory Quentin Philippes Other [facility] Other Start: 04-11-2022 Encounter for genera l adult medical examination without abnormal findings Quentin Philippes [facility] [place] Start: 04-11-2022 Periodic preventive med est patient 40-64yrs Quentin Kuns [facility] [place] Start: 10-04-2021 End: 10-04-2021 ambulatory Quentin Kuns Other [facility] Other Start: 10-04-2021 Office outpatient visit 15 minutes Quentin Philippes [facility] [place] Start: 07-28-2020 End: 07-29-2020 Patient encounter procedure MEG [facility] Start: 07-28-2020 End: 07-28-2020 Subsequent hospital visit by physician CLAUDINE HERNDON DOCTOR Start: 07-07-2019 Patient encounter status Quentinanastacia Paezs Other [facility] Other Procedures Date Procedure Procedure Detail Performing Clinician Start: 03-17-2024 X-ray of lumbar spin e, six views including bending views DO Quentin Kuns Work Phone: Start: 10-10-2023 X-ray of lumbar spin e, four views DO Quentin Kuns Work Phone: Start: 07-16-2023 X-ray of lumbar spin e, four views DO Quentin Kuns Work Phone: Start: 06-12-2023 X-ray of lumbar spin e, four views DO Quentin Kuns Work Phone: Start: 04-30-2023 OR Lumbar Laminectom y w/Fix Implants (Not Applicable) DO Quentin Kuns Work Phone: Start: 04-30-2023 X-ray of lumbar spin e, two or three views DO Quentin Kuns Work Phone: Start: 04-16-2023 Antibody screen Quentin roblero Comment on above: Order Comment: Date of Surgery: [id number] Result Comment: PERF ORMED BY: [facility] [address] [place] [address] PATHOLOGIST SUPERVISOR [employer] DESI FIELDS M.D. Start: 02-15-2023 Dual energy X-ray absorptiometry DO Quentin Kuns Work Phone: Start: 02-05-2023 MR lumbar spine wo con DO Quentin Kuns Work Phone: Start: 12-07-2022 X-ray of lumbar spin e, six views including bending views DO Quentin Kuns Work Phone: Start: 07-29-2020 COVID-19, ANTIBODY, TOTAL MEG BRUE Start: 07-29-2020 COVID-19, ANTIBODY, TOTAL Meg D Brue Work Phone: Electrocardiogram Quentinanastacia Paezs Other Plan of Treatment Date Care Activity Detail Author Start: 03-20-2024 Patient referral [facility] Work Phone: Start: 01-10-2024 EKG 12 channel panel Fi [facility] Start: 05-02-2023 [facility] Start: 04-30-2023 Hospital admission [facility] Start: 04-30-2023 [facility] Start: 04-30-2023 [facility] Start: 02-05-2023 MR lumbar spine wo con MR lumb ar spine wo con [facility] Start: 02-05-2023 MR Lumbar spine WO contrast [facility] Start: 06-15-2020 Influenza vaccination Flu vaccine (# 1) [place]- [place], [place] Comprehensive metabo lic 2000 panel - Serum or Plasma [facility] Patient referral [facility] Work Phone: [facility] Immunizations Immunization Date Immunization Notes Care Provider Fa cility 09-10-2023 Flu Shot - Documentation Purposes Only Chhaya Gautam Other [facility] 09-09-2023 Influenza, injectabl e, Madin [place] Canine Kidney, preservative free, quadrivalent DO Quentin Hubei [employer] Work Phone: [facility] 09-13-2022 Influenza, injectabl e, Madin [place] Canine Kidney, preservative free, quadrivalent DO Quentin Gameriuss Work Phone: [facility] 09-13-2022 influenza, seasonal, injectable Chhaya Gautam Other [facility] 06-09-2022 tetanus toxoid, redu joe diphtheria toxoid, and acellular pertussis vaccine, adsorbed Chhaya Gautam Other [facility] 07-13-2021 COVID-19 mRNA, Comirnaty (Pfizer) DO [employer] Work Phone: [facility] 07-13-2021 influenza, injectabl e, quadrivalent, preservative free DO [employer] Work Phone: [facility] 10-21-2020 COVID-19 mRNA, Comirnaty (Pfizer) DO Quentin Kuns Work Phone: [facility] 09-30-2020 COVID-19 mRNA, Comirnaty (Pfizer) DO Quentin Kuns Work Phone: [facility] 07-17-2020 influenza, injectabl e, quadrivalent, preservative free DO Quentin Kuns Work Phone: [facility] 07-17-2020 influenza, seasonal, injectable Quentin Kuns Other [facility] 06-27-2019 influenza, seasonal, injectable Quentin Kuns Other [facility] 06-27-2019 influenza, injectabl e, quadrivalent, preservative free DO Quentin Kuns Work Phone: [facility] 08-14-2018 influenza, injectabl e, quadrivalent, preservative free DO Quentin Kuns Work Phone: [facility] 08-14-2018 influenza, seasonal, injectable Quentin Kuns Other [facility] 07-19-2017 influenza, seasonal, injectable Quentin Kuns Other [facility] 08-05-2012 influenza virus vaccine, unspecified formulation DO Quentin Kuns Work Phone: [facility] 08-05-2012 influenza, high dose seasonal, preservative-free Quentin Kuns Other [facility] Other Payers Date Payer Category Payer Unknown 2023 Self-pay [id number] 2014 Unknown [id number] 1978 Unknown [id number] 2.16.8 [id number] 1978 Unknown [id number] 2.16.8 40.1.724773.3.579.2.727 1978 Unknown [id number] 2.16.8 40.1.765404.3.579.2.727 1978 Unknown [id number] 2.16. [id number] 1978 Unknown [id number] 2.16. 840.1.688518.3.579.2.196 1978 Unknown [id number] 2.16.84 0.1.645896.3.579.2.1259 1978 Unknown [id number] 2.16.840 .1.865676.3.579.2.1259 1978 Unknown [id number] 2.16.840 .1.684640.3.579.2.1259 1978 Unknown [id number] 2.16.840. 1.793174.3.579.2.1259 Unknown [facility] [id number] Unknown [id number] 2.16.8 40.1.081681.3.579.2.531 Unknown [id number] .16.8 40.1.918982.3.579.2.531 Unknown [id number] 2.16.8 40.1.403845.3.579.2.531 Unknown [id number] 2.16.8 40.1.463291.3.579.2.531 Unknown [id number] 2.16.8 40.1.754100.3.579.2.531 Unknown [id number] 2.16.8 40.1.526876.3.579.2.531 Unknown [id number] 2.16.8 40.1.039152.3.579.2.531 Unknown [id number] 2.16.8 40.1.859481.3.579.2.531 Unknown [id number] 2.16.8 40.1.839326.3.579.2.531 Social History Date Type Detail Facility Tobacco smoking stat [facility] [place] Sex Assigned At Not on file [facility] [place] Sex Assigned At [facility] Tobacco smoking status No Smokin g Status Entered [facility] Start: 1980 Sex Assigned At Female F [facility] Start: 04-16-2023 End: 11-27-2023 Tobacco smoking status NHIS Smoker (finding) [facility] Medical Equipment Procedure Code Equipment Code Equipment Origin al Text Equipment Identifier Dates Spinal fusion gr aft kit [id number] FDA Start: 04-30-2023 Bone-screw inter nal spinal fixation system, non-sterile [id number] FDA Start: 04-30-2023 Bone-screw inter nal spinal fixation system, non-sterile [id number] FDA Start: 04-30-2023 Polymeric spinal fusion cage, sterile [id number] FDA Start: 04-30-2023 Polymeric spinal fusion cage, sterile [id number] FDA Start: 04-30-2023 Bone-screw inter nal spinal fixation system, non-sterile [id number] FDA Start: 04-30-2023 Bone-screw inter nal spinal fixation system, non-sterile +[id number] FDA Start: 04-30-2023 Goals Date Patient Goal Desired Activity /State Functional Status Date Assessment Result Facility 05-02-2023 Functional status Patient at [facility] Work Phone: Mental Status Date Assessment Result Facility 05-02-2023 Cognitive function Cognitive Sta tus Patient at [facility] Work Phone: Clinical Notes 08-15-2020 to 01-10-2024 Note Date & Type Note Facility 01-10-2024 Evaluation note Authored January 10, 2024 12:44pm The above note written by Oleg KENNY acting as human recorder, note dictated by Dr. Quentin Rojas. 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 She is happy with her result we will see her again in 6 months with another x-ray looked at today's x-ray showing good hardware and cage placement. I have refilled her gabapentin for 3 months. [facility] Other 10-05-2023 Evaluation note* Encounter Date Diagnosis Assessment Notes Treatment Notes Treatment Clinical Notes Jul, Wellness examination (ICD-10 - Z00.00) At 3 months the patient is actually doing relatively well she still has some numbness and occasional burning but overall is functioning what she considers to be about 90 or 95% normal. She will notify us next week whether she will return to full duty and begin trying to work again or request work conditioning. She understands all the parameters involved we gave him for discussion going both directions she will give us her decision next week probably on Jul, Spondylolisthesis at L5-S1 level (ICD-10 - M43.17) [facility] Other 09-28-2023 Evaluation note* Encounter Date Diagnosis Assessment Notes Treatment Notes Treatment Clinical Notes Jun, Hyperlipidemia (ICD-10 - E78.5) I have reviewed recent lab results with patient today. Her numbers are up just slightly from previous but her HDL has improved which I am pleased with. This is diet controlled. I do want her to work on diet modification. Reduce the carbs/starches in her diet. Increase activity as tolerated. Patient recently had back surgery and has not been as active as previous. Remainder of her labs are normal to include blood count, thyroid and chemestries. Jun, Subcutaneous nodule of hand (ICD-10 - R22.30) Posterior hand has small mobile nodule on the right hand. This was noticed after her surgery and could be related to IV access. This is not painful and I am able to move if freely. I encouraged to watch for now. [facility] Other 08-31-2023 Evaluation note* Encounter Date Diagnosis Assessment Notes Treatment Notes Treatment Clinical Notes May, Wellness examination (ICD-10 - Z00.00) May, Spondylolisthesis at L5-S1 level (ICD-10 - M43.17) This patient actually has an amazingly good gait I think she is better than she started preoperatively but the right foot drop is quite annoying for her as are some of the dysesthesias in the right lower extremity they are slowly getting better according to the patient her x-ray today was independently evaluated and showed good cage placement good screw placement. We will increase her activity she will work on her foot drop with bands etc. I will see her at 11 weeks postop at which point we will start therapy for conditioning so she can get back to her job. [facility] Other 08-01-2023 Evaluation note* Encounter Date Diagnosis Assessment Notes Treatment Notes Treatment Clinical Notes May, Spondylolisthesis at L5-S1 level (ICD-10 - M43.17) The patient is actually doing very well she has some numbness and a little bit of foot weakness on the right some ankle discomfort mainly at night on the left.She is walking well. Nighttimes little difficult with regard to sleep I have added 300 mg 1 or 2 p.o. at at bedtime of gabapentin to help with this. We will see her in a month with an x-ray at that point if needed therapy will be started. May, Left lumbar radiculopathy (ICD-10 - M54.16) May, Right foot drop (ICD -10 - M21.371) [facility] Other 07-19-2023 Discharge summary Author Chhaya Gautam [facility] May 02, 2023 12:20pm Note Date/Time May 02, 2023 12:2 1pm [facility] [address] [place] [address] Discharge Summary Signed Patient: Vanessa Schroeder MR#: [id number] : 1980 Acct:[id number] Age/Sex: 42 / F Adm Date: 3 Loc: 4N Room: [address] [place] [address]: Chhaya Gautam MD Copies to: DO Chhaya Britt MD~ Providers Date of Discharge: 05/02/23 Discharging Provider: Chhaya Gautam Primary Care Provider: Quentin Rojas Consults: 04/30/23 11:23 Consult to Occupational Therapy Routine Consult to Physical Therapy Routine Discharge Diagnosis (1) Spondylolisthesis, lumbar region: Final Diagnosis Final Discharge Diagnosis: Spondylolisthesis. With stenosis and radiculopathy L5-S1 Summary Hospital Course Hospital course: Patient was admitted to the hospital preoperatively. Underwent general anesthesia. Was placed prone on the Smooth table. Bilateral pedicle screws were placed at L5 and S1. A posterior lumbar decompression was performed. Interbody fusion performed L5-S1. Patient tolerated procedure well. Postoperatively patient's recovery was unremarkable. Condition Condition at Discharge: Stable Status at Discharge Cognitive/behavioral status at discharge: Unchanged Functional status at discharge: uses cane/walker Overall status at discharge: patient is progressing back to baseline Time Spent with Patient Time spent providing/coordinating discharge services (# min): 30 Surgeries and Procedures Operation Date: 04/30/23 07:30 Actual Procedures p OR PLIF L5-S1(Not Applicable) - Chhaya Gautam MD Diagnostic Studies Completed and Pending Studies Labs on day of discharge: 05/02/23 04:50: PHA Creatinine Clear 98.21, Sodium 138, Potassium 4.3, Chloride 106, Carbon Dioxide 26.4, Anion Gap 9.9, BUN 11, Creatinine 0.73, Est GFR (CKD-EPI) > 60.0, Glucose 129 H, Calcium 8.9 05/02/23 04:50: Corrected WBC 16.9 H, Uncorrected WBC Count 16.9 H, RBC 3.72, Hgb 12.1, Hct 35.0, MCV 94.1, MCH 32.5, MCHC 34.5, RDW 13.4, Plt Count 264, MPV 7.1, Neut % (Auto) 88.8, Lymph % (Auto) 6.1, [place] % (Auto) 5.1, Eos % (Auto) 0.0, Baso % (Auto) 0.0, Nucleat RBC Rel Count 0.0, Neut # (Auto) 15.0 H, Lymph #(Auto) 1.0, [place] # (Auto) 0.9 H, Eos # (Auto) 0.0, Baso # (Auto) 0.0 Exam Physical Exam Vital Signs: Temp Pulse Resp BP Pulse Ox O2 Del Method O2 Flow Rate 98.2 F 65 18 104/65 97 Room Air 8 05/02/23 02:50 05/02/23 02:50 05/02/23 02:50 05/02/23 02:50 05/02/23 02:50 05/02/23 08:00 04/30/23 10:19 Discharge Plan Discharge Plan Prescriptions: No Action multivitamin Tablet 1 tab PO QAM citalopram [Celexa] 10 mg tablet 10 mg PO QAM Patient Comments: take 1 tablet by mouth once daily ibuprofen 200 mg Tablet 200 mg PO Q6H PRN (Reason: Pain) Nexplanon 68 mg Implant 1 implant SUBDERMAL ONCE Patient Comments: left arm Rx Instructions: as a single dose Follow Up: Chhaya Gautam MD [Active Staff] - 05/29/23 11:00 am Documented By: Chhaya Gautam MD 05/02/23 1207 Signed By: <Electronically signed by MD Chhaya Gautam> 05/02/23 1220 [facility] Work Phone: 1(155) 339-740707-19-2023 Progress note Author Chhaya Gautam [facility] May 02, 2023 12:20pm Note Date/Time May 02, 2023 12:2 0pm [facility] [address] [place] [address] Neurosurgery Progress Note Signed Patient: Vanessa Schroeder MR#: [id number] : 1980 Acct:[id number] Age/Sex: 42 / F Adm Date: 3 Loc: 4N Room: [address] [place] [address] Type: REG [facility] Attending Dr: Chhaya Gautam MD Copies to: ~ Date of Service: 05/02/2023 Subjective Subjective HPI: Patient in chair at bedside. Says her back pain is tolerable, hips are sore, legs feel drunk. Wishes to go home. Exam Physical Exam Vital Signs: Temp Pulse Resp BP Pulse Ox O2 Del Method O2 Flow Rate 98.2 F 65 18 104/65 97 Room Air 8 05/02/23 02:50 05/02/23 02:50 05/02/23 02:50 05/02/23 02:50 05/02/23 02:50 05/02/23 02:50 04/30/23 10:19 Narrative: Incision clean dry Lower extremity strength and motion baseline Gait grossly normal using walker Brace fitting appropriately Objective Lab Results Most Recent Labs: 05/02/23 04:50: PHA Creatinine Clear 98.21, Sodium 138, Potassium 4.3, Chloride 106, Carbon Dioxide 26.4, Anion Gap 9.9, BUN 11, Creatinine 0.73, Est GFR (CKD-EPI) > 60.0, Glucose 129 H, Calcium 8.9 05/02/23 04:50: Corrected WBC 16.9 H, Uncorrected WBC Count 16.9 H, RBC 3.72, Hgb 12.1, Hct 35.0, MCV 94.1, MCH 32.5, MCHC 34.5, RDW 13.4, Plt Count 264, MPV 7.1, Neut % (Auto) 88.8, Lymph % (Auto) 6.1, [place] % (Auto) 5.1, Eos % (Auto) 0.0, Baso % (Auto) 0.0, Nucleat RBC Rel Count 0.0, Neut # (Auto) 15.0 H, Lymph #(Auto) 1.0, [place] # (Auto) 0.9 H, Eos # (Auto) 0.0, Baso # (Auto) 0.0 Assessment/Plan Assessment/Plan (1) Spondylolisthesis, lumbar region: Plan: Increase activity as tolerated with physical therapy. Discharge to home, discharge instructions given. Code(s): M43.16 - Spondylolisthesis, lumbar region Status: Acute Documented By: Chhaya Gautam MD 05/02/23 1203 Signed By: <Electronically signed by MD Chhaya Gautam> 05/02/23 1223 [facility] Work Phone: 1(865) 737-406207-19-2023 Progress note Author Chhaya Gautam [facility] May 02, 2023 12:19pm Note Date/Time May 02, 2023 12:2 0pm [facility] [address] [place] [address] Neurosurgery Progress Note Signed Patient: Vanessa Schroeder MR#: [id number] : 1980 Acct:[id number] Age/Sex: 42 / F Adm Date: 3 Loc: 4N Room: 5W8415-3 Type: REG [facility] Attending Dr: Chhaya Gautam MD Copies to: ~ Date of Service: 05/01/2023 Subjective Subjective HPI: Patient in bed awake and alert. Says her back is sore but tolerable, left leg feels good, complains of pain in her right buttocks and foot. Exam Physical Exam Vital Signs: Temp Pulse Resp BP Pulse Ox O2 Del Method O2 Flow Rate 98.6 F 92 H 16 129/70 99 Room Air 8 04/30/23 11:23 04/30/23 18:46 04/30/23 18:46 04/30/23 18:46 04/30/23 18:46 04/30/23 10:44 04/30/23 10:19 Narrative: Incision clean and dry Lower extremity strength and motion baseline Gait grossly normal using walker Brace fitting appropriately Assessment/Plan Assessment/Plan (1) Spondylolisthesis, lumbar region: Plan: Increase activity as tolerated with physical therapy. She is walking much better overall at this point she feels she can go home I agree full home-going instructions were given. Code(s): M43.16 - Spondylolisthesis, lumbar region Status: Acute Documented By: Chhaya Gautam MD 05/01/23 0741 Signed By: <Electronically signed by MD Chhaya Gautam> 05/02/[address] [place] [address] Ctr Work Phone: 1(952) 559-592406-20-2023 Evaluation note* Encounter Date Diagnosis Assessment Notes Treatment Notes Treatment Clinical Notes Mar, Spondylolisthesis at L5-S1 level (ICD-10 - M43.17) I independently reviewed The DEXA scan of the axial skeleton showing reasonable bone. I independently reviewed the MRI of the lumbar spine showing a grade 2/3 spondylolisthesis L5-S1 with severe foraminal narrowing and this is also mirrored by the findings of the plain x-ray of the lumbar spine L5-S1 which was independently reviewed. 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 I am recommending a L5-S1 posterior lumbar interbody fusion I discussed with the patient the indication operation postop course risk benefits and complications of surgery to include infection, hardware failure, incomplete relief of symptoms, pain, spinal fluid leak, potential paralysis. She understands the above and would like to proceed with surgical intervention. She will need 3 months immobilization for stabilization of the back and pain by supporting the lumbar musculature. She understands all the above and would like to proceed with surgical intervention she is aware that the outcome of high-grade spondylolisthesis at L5-S1 is uncertain. Mar, Left lumbar radiculopathy (ICD-10 - M54.16) [facility] Other 05-19-2023 Evaluation note* Encounter Date Diagnosis Assessment Notes Treatment Notes Treatment Clinical Notes February, Spondylolisthesis, lumbar region (ICD-10 - M43.16) Reviewed previous Imaging with patient and father. Dr Hampton discussed in detail the need for surgical intervention and discussed risks and benefits. Reassured the patient for need for Physical Therapy in which patient will set appointment and follow up in 3 weeks. Patient would like more time to decide on surgical interventions. Will follow up in [address] Gautam February, Left lumbar radiculopathy (ICD-10 - M54.16) [facility] Other 04-19-2023 Evaluation note* Encounter Date Diagnosis Assessment Notes Treatment Notes Treatment Clinical Notes Jan, Left lumbar radiculopathy (ICD-10 - M54.16) Patient has put physical therapy on hold as this is costly out of pocket. Jan, Spondylolisthesis at L5-S1 level (ICD-10 - M43.17) After review of consult note from [employer] Janel Waite, lumbar spine x-ray shows a grade 4-5 spondylolisthesis with worsening lumbosacral spondylolisthesis due to L5 spondylosis. Patient is to follow with neurosurgery as scheduled. Jan, Mood swings (ICD-10 - F39) Patient has had a change in positions at work now having more responsibility which has also lead to increased stress and anxiety along with her current back pains. I agreed to restart the above as she has been on this before, knows how it makes her feel, and will notify our office if she has any concerns. Medication e-scribed. [facility] Other 04-06-2023 Evaluation note* Encounter Date Diagnosis Assessment Notes Treatment Notes Treatment Clinical Notes Jan, Spondylolisthesis at L5-S1 level (ICD-10 - M43.17) I independently reviewed the x-ray of the lumbar spine and which shows a grade 4-5 spondylolisthesis.wor sening lumbosacral spondylolisthesis due to L5 spondylosis . There is an increasing anterolisthesis of L5 on S1 due to bilateral L5 spondylosis.There is slight disc space narrowing L3-4 and L4-5 and loss of disc space at the lumbosacral junction. Alignment is otherwise maintained no evidence of a fracture. She is currently unable to tolerate [facility] after 1 session. WIll order MRI to rule out cord involvement. WIll order Aqua Therapy at [facility]. WIll follow up once MRI is complete. Jan, Lumbar radiculopathy (ICD-10 - M54.16) Medical decision making shows a new problem to me with further workup planned or suggested with the potential for extensive treatment options that were considered with the most applicable given this patient's situation as noted above. Treatment options considered include a combination of physical therapy approaches, pharmacologic management, and interventional procedures. Those most applicable to the patient were discussed at this time. Risk of complications and/or morbidity and mortality is high given that acute and chronic pain poses a threat to life and bodily function if undertreated, poorly treated or with failure to maintain adequate treatment and timely follow up. Given the serious and fluctuating nature of pain with extensive consideration for whenever pain changes, there always remains the possibility of prolonged functional impairment requiring constant patient reassessment and high-level medical decision making. The amount and complexity of data reviewed is moderate given that patient labs, radiology reports, and other test were obtained, reviewed and summarized as applicable from the physician portal and/or outside medical records. Pertinent positive and negative findings were considered in medical decision-making. Jan, BMI 30.0-30.9,adult (ICD-10 - Z68.30) Education on diet and exercise. Use of my plate Jan, Encounter for screening for depression (ICD-10 - Z13.31) PHQ reviewed score 0 negative screening [facility] Other 03-24-2023 Evaluation note* Encounter Date Diagnosis Assessment Notes Treatment Notes Treatment Clinical Notes Dec, Spondylolisthesis at L5-S1 level (ICD-10 - M43.17) [facility] Other 03-16-2023 Evaluation note* Encounter Date Diagnosis Assessment Notes Treatment Notes Treatment Clinical Notes Dec, Left lumbar radiculopathy (ICD-10 - M54.16) Continued complaints of left lumbar back pain with radicular symptoms down in to the left lower extremity. No improvement with medrol dose pack or ibuprofen. Imaging reviewed with patient. I have educated patient of findings using visual aid for understanding. Aleve and tylenol regimen suggested. Dec, Spondylolisthesis at L5-S1 level (ICD-10 - M43.17) Imaging results reviewed with patient today. This did reveal spondylolithesis at L5-S1 that when compared to previous imaging it has worsened from 8 mm to 2 cm. No response or change in her pain was received with the Medrol dose pack provided at last visit. She does use Ibuprofen as needed. I will order MRI of the lumbar spine and physical therapy. After this has been completed I will refer to neurosurgery for consultation. Patient is in agreement. I have provided patient with an order for physical therapy. She may take this to which ever provider she chooses. [facility] Other 02-23-2023 Evaluation note* Encounter Date Diagnosis Assessment Notes Treatment Notes Treatment Clinical Notes Nov, Lumbosacral radiculopathy (ICD-10 - M54.17) I reviewed l-s spine xray results from 2010 which did show spondylolisthesis . She does have pars defect also demonstrated. I have educated patient with visual aids. Neuro exam done does reveal diminished reflexes on the left and positive straight leg raise. I am going to order repeat L-S spine imaging and order a short burst of steroids to see if this gives her some relief. Nov, Sciatica of left side (ICD-10 - M54.32) Patient has point tenderness in the left SI joint and this will radiate down the left leg. Stretching exercises encouraged. She voices a burning sensation of the foot. I am going to start her on some steriods to see if this helps [facility] Other 06-28-2022 Evaluation note* Encounter Date Diagnosis Assessment Notes Treatment Notes Treatment Clinical Notes Mar, Wellness examination (ICD-10 - Z00.00) Urine test results are normal. EKG reviewed with patient and does not demonstrate any changes. Lab ordered for patient and she will follow up via [facility] to review Mar, Mood swings (ICD-10 - F39) Patient is stable on meds and refills provided Mar, Numbness of left hand (ICD-10 - R20.0) Complaints of left upper extremity numbness and pain. 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 We will refer to Nolberto Hull, Neurologit, for EMG of the left upper extremity. Patient will also be given the order to hand carry for the EMG and if she can get in sooner some other place that will be fine, [facility] Other 11-01-2020 History general Narrative - Reported* Type Description Date Medical History Follows with Dr. Hunt for pap/ pelvic 08/2020 Medical History Implanon removed 12/2018 Medical History 12/2018, 11/28/2021 Mammogram Medical History 07/07/19 EKG Medical History 03/2020 EKG Medical History COVID vaccination 12.17.20 (dose 1) Medical History Abnormal pap 2019 follows with Axel Church q 6 months Surgical History Right carpal tunnel release 2020 Hospitalization History croup as a kid [facility] Other 11-01-2020 History general Narrative - Reported* Type Description Date Medical History Follows with Dr. Hunt for pap/ pelvic 08/2020 Medical History Implanon removed 12/2018 Medical History 12/2018, 11/28/2021 Mammogram Medical History 07/07/19 EKG Medical History 03/2020 EKG Medical History COVID vaccination 12.17.20 (dose 1) Medical History Abnormal pap 2019 follows with Axel Church q 6 months Medical History mononucleosis Surgical History Right carpal tunnel release 2020 Hospitalization History croup as a kid [facility] Other 11-01-2020 History general Narrative - Reported* Type Description Date Medical History Follows with Dr. Hunt for pap/ pelvic 08/2020 Medical History Implanon removed 12/2018 Medical History 12/2018, 11/28/2021 Mammogram Medical History 07/07/19 EKG Medical History 03/2020 EKG Medical History COVID vaccination 12.17.20 (dose 1) Medical History Abnormal pap 2020 follows with Axel Church q 6 months Medical History mononucleosis Surgical History Right carpal tunnel release 2020 Hospitalization History croup as a kid Hospitalization History see above surg. hx. [facility] Other 11-01-2020 History general Narrative - Reported* Type Description Date Medical History Follows with Dr. Hunt for pap/ pelvic 08/2020 Medical History Implanon removed 12/2018 Medical History 12/2018, 11/28/2021 Mammogram Medical History 07/07/19 EKG Medical History 03/2020 EKG Medical History COVID vaccination 12.17.20 (dose 1) Medical History Abnormal pap 2020 follows with Axel Church q 6 months Medical History mononucleosis Surgical History Right carpal tunnel release 2020 Surgical History PLIF 2022 Hospitalization History croup as a kid Hospitalization History see above surg. hx. [facility] Other 11-01-2020 History general Narrative - Reported* Type Description Date Medical History Follows with Dr. Hunt for pap/ pelvic 08/2020 Medical History Implanon removed 12/2018 Medical History 12/2018, 11/28/2021 Mammogram Medical History 07/07/19 EKG Medical History 03/2020 EKG Medical History COVID vaccination 12.17.20 (dose 1) Medical History Abnormal pap 2020 fo llows with q 6 months Medical History mononucleosis Medical History 04/17/2023 EKG Medical History 12/02/2022 Mammogram Surgical History Right carpal tunnel release 2020 Surgical History PLIF L5-S1 Dr. Gautam- hardware in place 04/30/2023 Hospitalization History croup as a kid Hospitalization History see above surg. hx. [facility] Other evaluation + Plan note Future Appointments Appointment Date:12/01/2022 08:00:00 AM Scheduled Provider: Location:.MAMMOGRAM Appointment Type:MA Screen (FT) Diagnostic Tests Pending * PAP [id number]/22 Future Scheduled Tests Radiology* MA Mamm Screen w/CAD if perf and 3D Andrea [facility] Evaluation noteNo assessment information available [facility] Work Phone: evaluation noteNo [facility] Other evaluation note* Diagnosis Onset Date Resolution Status Spondylolisthesis, lumbar region acute [facility] Work Phone: evaluation note* Diagnosis Onset Date Resolution Status Anxiety acute Spondylolisthesis at L5-S1 level acute [facility] Work Phone: evaluation note* Author Leslie Denis [facility] Authored January 10, 2024 12: 44pm The above note written by Oleg KENNY acting as human recorder, note dictated by Dr. Quentin Rojas. [facility] Work Phone: evaluation note* Diagnosis Onset Date Resolution Status Trochanteric bursitis, right hip acute BMI 32.0-32.9,adult acute Hyperglycemia acute Hyperlipidemia acute Obesity acute Right hip pain acute Spondylolisthesis at L5-S1 level acute [facility] Work Phone: History general [facility] - [facility] Other Hospital course Narrative No data available for this section [facility] No data available for this section [facility] Discharge instructions Additional Instructions DISCHARGE INSTRUCTIONS FOR POSTERIOR LUMBAR INTERBODY FUSION OR POSTERIOR LUMBAR FUSION DIET-regular home diet ACTIVITY - Wear brace when sitting and standing and out of bed - Activity as tolerated; No lifting over 15 pounds - Stairs as tolerated - Walk as much as possible - No driving until seen by physician; may ride in car -May shower . Apply dressing if drainage present if no drainage present dressing is not necessarily needed - Keep incision clean and dry OTHER - Call your provider's office for any fever, chills, nausea, vomiting, headache, numbness, or tingling. - Call your providers office and make an appointment to see your provider in 2 weeks. Use ice as needed for back spasm 20 minutes every 1-2 hours Use the prednisone provided if the leg pain returns to a significant degree after surgery. 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 Advance Directive Response Recorded Date/ Time Advance Directives No June 5:14pm Advance Directive Response Recorded Date/ Time Advance Directives No June 6:14pm Summary Purpose Family History No Family History Records Found Relationship Condition Age at Onset Recorded Date/T guillaume father Myocardial infarction Unknown Presence of stent in coronary artery Unkn own Relationship Condition Age at Onset Recorded Date/T guillaume father Myocardial infarction Unknown Presence of stent in coronary artery Unkn own father High blood cholesterol Unknown grandparent Unknown Malignant neoplasm Unknown Diabetes mellitus Unknown Not Specified Hypertension Unknown Unknown Heart disease Unknown Relationship Condition Age at Onset Recorded Date/T guillaume father Myocardial infarction Unknown Presence of stent in coronary artery Unkn own father High blood cholesterol Unknown grandparent Unknown Malignant neoplasm Unknown Diabetes mellitus Unknown mother Hypertension Unknown Unknown Heart disease Unknown Reason for Referral Reason work conditioning Diagnosis 1 Spondylolisthesis at L5-S1 level (M43.17) Referral Organization [facility] Referring Provider First Name Chhaya Referring Provider Last Name Dain Referring Provider Specialty Neurologica l Surgery Referred Organization [facility] Referred Address ,[place], [place],[address] Referred Provider Specialty Physical The rapist Referral Priority Routine Reason evaluate and treat-a radha therapy Diagnosis 1 Spondylolisthesis at L5-S1 level (M43.17) Referral Organization [facility] Referring Provider First Name Janel Referring Provider Last Name Ravindra Referring Provider Specialty Nurse Pract itioner Referred Organization [facility] Advanced Phys ical therapy Referred Address [address],[place], [place],[address] Referred Provider Specialty Physical The rapist Referral Priority Routine Reason *Waiting for appt Evaluate and Treat- Can see Janel at Neurology first if need be Diagnosis 1 Spondylolisthesis at L5-S1 level (M43.17) Referral Organization [facility] [place] Referring Provider First Name Quentin Referring Provider Last Name Len Referring Provider Specialty Family Prac tamiko Referred Organization [facility] Referred Provider Jackie Peña Referred Address [address] ,[place], [place],[address] Referred Provider Specialty Neurological Surgery Referral Priority Routine General Notes Kiera Bowser M 023 01:05:03 PM >Received today and sent P2P Reason Patient is needing E MG of the left upper extremity to rule out CTS Diagnosis 1 Numbness of left awan d (R20.0) Referral Organization [facility] [place] Referring Provider First Name Quentin Referring Provider Last Name Len Referring Provider Specialty Family Corona morrison Referred Organization Unknown Facility Referred Provider Pedro Arvizu Referred Provider Specialty Neurology Referral Priority Routine General Notes FlaquitokavonRakel 04/11 01:10:37 PM >Patient will proceed with EMG elsewhere. Please close referral. thanks. Chief Complaint and Reason for Visit Chief Complaint M54.17 M54.32 spondylosis L5/S1 m43.17 Chief Complaint M54.17 M54.32 spondylosis L5/S1 m43.17 m43.17 Chief Complaint spondylosis L5/S1 m43.17 m43.17 Spondylolisthesis Chief Complaint m43.17 Spondylolisthesis Spondylolisthesis Reason for Visit Spondylolisthesis, l umbar region Chief Complaint Spondylolisthesis Spondylolisthesis m43.17 Reason for Visit Spondylolisthesis, l umbar region Chief Complaint Spondylolisthesis m43.17 wellness exam m43.17 Reason for Visit Spondylolisthesis, l umbar region Chief Complaint m43.17 m43.17 Chief Complaint m43.17 6 Mo Po/Xray medication check Reason for Visit Anxiety Spondylolisthesis at L5-S1 level Chief Complaint 6 Mo Po/Xray medication check Amb Documentation Wellness Reason for Visit Anxiety Spondylolisthesis at L5-S1 level Screening for colon cancer Wellness examination Chief Complaint Wellness M54.16 Reason for Visit Screening for colon cancer Wellness examination Chief Complaint Wellness M54.16 11 month po PLIF w/xray Reason for Visit Screening for colon cancer Wellness examination Chief Complaint Z00.00;R25.3 M54.16 11 month po PLIF w/xray blood work Reason for Visit Trochanteric bursiti s, right hip BMI 32.0-32.9,adult Hyperglycemia Hyperlipidemia Obesity Right hip pain Spondylolisthesis at L5-S1 level Additional Source Comments INFORMATION SOURCE (unrecogn ized section and content) DATE CREATED AUTHOR 07/30/2020 [facility] DATE CREATED AUTHOR AUTHOR'S ORGANIZ ATION 12/04/2023 [facility] DATE CREATED AUTHOR AUTHOR'S ORGANIZ ATION 03/22/2024 [facility] DATE CREATED AUTHOR AUTHOR'S ORGANIZ ATION 05/16/2024 [facility] DATE CREATED AUTHOR AUTHOR'S ORGANIZ ATION 05/29/2024 [facility] EPIC REASON FOR VISIT (unrecogniz ed section and content) wellnessleft hip pain-shooti ng down to footfollow upMRI/[id number] by Dr. Rojas Spondylolisthesis at L5-S11 month Follow up lumbar pain - neurosurgeon consult notes printedsurg consult with Dr. Ron/u surgical consultplif L4-S12 wk po/plif L5- S1/ wk po/ plif/ xray1 month Follow up3 month po/ xray6 mo po/xray Patient Care team informatio n (unrecognized section and content) Team Status: Active Member Role Status Dates Quentin Rojas DO Primary Care Provider Active Team Status: Active Member Role Status Dates Quentin Rojas DO Primary Care Provide r, Attending Provider Active Start: February 07, 2024 Team Status: Inactive Member Role Status Dates Quentin Rojas DO Primary Care Provide r, Attending Provider Active Start: March 17, 2024 End: March 17, 2024 Team Status: Inactive Member Role Status Dates Quentin Rojas DO Primary Care Provider Active Sta rt: March 17, 2024 End: March 17, 2024 Chhaya Gautam MD Attending Provider Active Star t: March 17, 2024 End: March 17, 2024 Team Status: Inactive Member Role Status Xiao Rojas DO Primary Care Provider Active Sta rt: March 20, 2024 End: March 20, 2024 Chhaya Gautam MD Attending Provider Active Star t: March 20, 2024 End: March 20, 2024 Team Status: Inactive Member Role Status Xiao Rojas DO Primary Care Provide r, Attending Provider Active Start: April 28, 2024 End: April 28, 2024 Team Status: Inactive Member Role Status Xiao Rojas , DO Primary Care Provider, Attending Provi shamika Active Team Status: Inactive Member Role Status iXao Rojas DO Primary Care Provider Active XENIA Whiteside Attending Provider Active Team Status: Active Member Role Status Xiao Rojas DO Primary Care Provider, Attending Provi shamika Active Team Status: Inactive Member Role Status Xiao Rojas DO Primary Care Provider Active Chhaya Gautam MD Attending Provider Active Team Status: Inactive Member Role Status Xiao Rojas DO Primary Care Provider Active Sta rt: October 10, 2023 End: October 10, 2023 Chhaya Gautam MD Attending Provider Active Star t: October 10, 2023 End: October 10, 2023 Team Status: Inactive Member Role Status Xiao Gautam MD Attending Provider Active Star t: October 19, 2023 End: October 19, 2023 Team Status: Inactive Member Role Status Xiao Rojas DO Primary Care Provide r, Attending Provider Active Start: November 27, 2023 End: November 27, 2023 Team Status: Active Member Role Status Xiao Rojas DO Primary Care Provider Active Sta rt: December 06, 2023 EFRAÍN Scanlon Attending Provider Active Start: December 06, 2023 Team Status: Inactive Member Role Status Xiao Rojas DO Primary Care Provide r, Attending Provider Active Start: January 10, 2024 End: January 10, 2024 Team Status: Active Member Role Status Xiao Rojas DO Primary Care Provide r, Attending Provider Active Start: January 10, 2024 Team Status: Active Member Role Status Xiao Rojas DO Primary Care Provider Active Sta rt: March 17, 2024 Chhaya Gautam MD Attending Provider Active Star t: March 17, 2024 Goals (unrecognized section and content) Goals may be documented in a n alternate section FOR RECORDS PERTAINING TO PATIENTS WHO ARE OR HAVE BEEN ENROLLED IN A CHEMICAL DEPENDENCY/SUBSTANCEABUSE PROGRAM, SOME INFORMATION MAY BE OMITTED. This clinical summary was aggregated from multiple sources. Caution should be exercised in using it in the provision of clinical care. This summary normalizes information from multiple sources, and as a consequence, information in this document may materially change the coding, format and clinical context of patient data. In addition, data may be omitted in some cases. CLINICAL DECISIONS SHOULD BE BASED ON THE PRIMARY CLINICAL RECORDS. [facility] [employer] [facility]. provides no warranty or guarantee of the accuracy or completeness of information in this document.
--- NOTE | 2024-06-09 13:50 | P.CN_ITS ---
Consult Note: HPI Data of Consult Patient: known to practice within the last 3 years Consult date: 06/09/24 Requesting Physician: Malinda Malik MD Primary Care Provider: QUENTIN ROJAS Family Provider: QUENTIN ROJAS Consult Narrative Reason for consult: right leg pain Narrative: 43yof who presents for assessment. notes persistence of pain and numbness into right lower extremity. emg reviewed, which is consistent with chronic l5 radiculopathy. she is fused from l5-s1. continues to stay active at home. uses tylenol and gabapentin. denies adverse med side effects. cc:: CC: Malinda Malik MD Review of Systems ROS Status of ROS 10 or more systems reviewed and unremark able except as noted in history and below Meds Home Medications and Allergies Home Medications ?Medication ?Instructions ?Recorded ?Confirmed ?Type etonogestrel 68 mg subdermal subdermal 04/14/24 History implant (Nexplanon) gabapentin 300 mg capsule 300 mg PO BID 04/14/24 04/14/24 History vortioxetine 5 mg tablet 5 mg PO DAILY 04/14/24 04/14/24 History (Trintellix) Allergies Allergy/AdvReac Type Severity Reaction Status Date / Time Penicillins Allergy itching Verified 04/14/24 13:59 Sulfa (Sulfonamide Allergy itching Verified 04/14/24 13:59 Antibiotics) sulfamethoxazole Allergy itch Verified 04/14/24 13:59 [From Bactrim] trimethoprim [From Bactrim] Allergy itch Verified 04/14/24 13:59 Exam Narrative Exam Narrative: Psych-alert and oriented x 3. Attentive and appropriate, constitutionally normal, displays normal mood and affect per situation.? There are no obvious deficits in memory, reasoning, or intellect.? Skin-no obvious rashes, bruising, erythema noted to the patient's area of pain. Extremities- extremities are warm with minimal edema and palpable pulses. Lumbar-no significant tenderness to palpation noted in the lumbar spine and paraspinal musculature.? Pain is elicited with extension, and lateral rotation of the lumbar spine. Range of motion is slightly diminished with these motions due to pain. Coordination remains intact.? Gait remains non-antalgic. Assessment and Plan Assessment and Plan (1) Lumbar radiculopathy: Plan 43yof who presents for assessment. failed conservative measures. emg reviewed and discussed that she likely had chronic l5 radiculopathy as a consequence of her previous stenosis and subsequent fusion. discussed that we would see how things go for now, though if symptoms worsen, could consider bilateral l5-s1 tfesi or even scs. she expressed understanding. meds reviewed, no changes. follow up as needed.
== END 2024-06-09 13:24 | disposition home or self-care (01) ==
LOC: PM 13:24
PROVIDERS: PCP Family Medicine; Visit Provider Anesthesiology
DX: M54.16 Radiculopathy, lumbar region (principal)
CPT/HCPCS: G0463